=== PATIENT | male | born 1940 | race Caucasian/White ===

== ENCOUNTER → 2020-05-07 08:30 | Outpatient (CLI) | payer MEDICARE, SELFPAY ==
[2019-09-20 13:02] VITALS: BMI 26.2
[2020-05-07 10:15] LABS: Anion Gap 5 (5-15); BUN 20 mg/dL (7-18); BUN/Creat Ratio 21.1 RATIO (10-20); Calcium,Total 9.1 mg/dL (8.5-10.1); Chloride 107 mmol/L (98-107); Cholesterol 183 mg/dL (200); Creatinine, Serum 0.95 mg/dL (0.70-1.30); EST Glomerular Filtration Rate 82 mL/min (>60); Est Glom Filt Rate - Afr Amer 99 mL/min (>60); Glucose 84 mg/dL (74-106); High Density Lipoprotein 42 mg/dL; Potassium 4.3 mmol/L (3.5-5.1); Sodium Level 140 mmol/L (136-145); Triglycerides 134 mg/dL; Very Low Density Lipoprotein 27 mg/dL (5-40)
== END ==
PROVIDERS: PCP Family Medicine; Referring Provider Family Medicine; Visit Provider Family Medicine
DX: I10 Essential (primary) hypertension (principal)
CPT/HCPCS: 36415; 80048; 80061

== ENCOUNTER 2020-12-04 12:42 | Outpatient (RCR) | payer MEDICARE, SELFPAY ==
[2020-08-07 13:00] VITALS: BMI 28.5
== END 2020-12-04 23:59 ==
LOC: IMMUN 12:42
PROVIDERS: PCP Family Medicine; Visit Provider Family Medicine
DX: Z23 Encounter for immunization (principal)
CPT/HCPCS: 0011A; 0012A; 91301

== ENCOUNTER 2021-04-03 16:52 | Emergency (ER) | payer MEDICARE, SELFPAY ==
[2020-08-07 13:00] VITALS: BMI 28.5
[2021-04-03 16:54] VITALS: BP 205/72; PULSE 46; RESP 12; TEMP 36.8; O2SAT 98; BMI 27.7
[2021-04-03 17:00] VITALS: BP 164/89; PULSE 74; RESP 15; O2SAT 98
[2021-04-03 17:06] VITALS: O2SAT 98
--- NOTE | 2021-04-03 17:12 | ED.RN ---
PER DR. ALVAREZ NO STROKE TEAM.
--- NOTE | 2021-04-03 17:13 | CT_ITS ---
STUDY: CT BRAIN WITHOUT CONTRAST REASON FOR EXAM: Male, 81 years old. syncope RADIATION DOSAGE (If Supplied By Facility): CTDIvol = ( 44.99 ) mGy, DLP = ( 846.73 ) mGycm TECHNIQUE: Transaxial CT imaging of the brain was performed without administration of intravenous contrast material. Individualized dose optimization techniques were used for this CT. COMPARISON: No relevant priors. FINDINGS: Normal soft tissue structures. Normal calvarium. There is mild cerebral atrophy with widening of the extra-axial spaces and ventricular dilatation. Normal white matter tracts of the cerebral hemispheres. Normal basal ganglia and thalami. Normal brainstem. Normal cerebellum. There is no intracranial hemorrhage. 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 Normal visualized paranasal sinuses. CT/Brain/Head without Contrast IMPRESSION: Chronic involutional changes of the brain. Electronically Signed: Angel Villa MD at 17:36 EDT Tel , Service support ,
--- NOTE | 2021-04-03 17:14 | EKG12_ITS ---
Test Reason : PALPS Blood Pressure : / mmHG Vent. Rate : 049 BPM Atrial Rate : 049 BPM P-R Int : 220 ms QRS Dur : 168 ms QT Int : 492 ms P-R-T Axes : 014 -82 006 degrees QTc Int : 444 ms Sinus bradycardia with 1st degree A-V block with occasional Premature ventricular complexes Right bundle branch block Left anterior fascicular block Bifascicular block Abnormal ECG Confirmed by JERALD LARA, GERARDO ([id number]), senior technical editor YOLY MANJARREZ ([id number]) on 04/04/2021 1:04:34 PM Referred By: KIM Confirmed By:GERARDO MARQUES MD
--- NOTE | 2021-04-03 17:15 | EDS_ITS ---
HPI History of Present Illness Chief Complaint: Fall Onset/Context/Timing Onset: Today Context: Sudden Onset Timing: Continuous Quality: Blurry Location: Right eye Worsened by: Nothing Relieved by: Nothing Narrative Narrative: Patient presents with a near syncopal episode that occurred today. P atient states he was mowing and he went to turn around. Patient states he felt weak and lightheaded at the time. Patient admits to some blurred vision out of his right eye. Patient states he initially lost vision in his right eye for a few seconds and then it became blurry. Patient still complains of some blurred vision in his right eye. Patient states he also sees some floaters in his right eye. Patient denies any chest pain or palpitations. Patient does admit to a mild headache. Patient denies any shortness of breath. Patient denies any nausea or vomiting. [facility] Medical History (Updated 04/03/21 @ 19:[address] Willis Cameron DO) Essential hypertension History of DVT (deep vein thrombosis) History of radiation therapy Hyperlipidemia Iron deficiency anemia Paroxysmal atrial fibrillation Home Medications lisinopril 40 mg tablet 40 mg PO DAILY 09/18/19 [History Last Taken Unknown] pravastatin 40 mg tablet 40 mg PO QHS tab 09/18/19 [History Last Taken Unknown] metoprolol tartrate 25 mg tablet 25 mg PO BID #60 tab 09/20/19 [Rx Last Taken Unknown] apixaban 5 mg tablet 2.5 mg PO BID tab 01/31/20 [History Last Taken Unknown] multivitamin 1 tab PO DAILY 01/31/20 [History Last Taken Unknown] hydrocodone-acetaminophen 1 tab PO Q6H PRN PRN 3 Days #10 tablet 04/03/21 [Rx Last Taken Unknown] Allergy/AdvReac Type Severity Reaction Status Date / Time No Known Allergies Allergy Unverified 04/03/21 16:53 Family History Father , Age 47 Myocardial infarction Mother Heart disease Brother Heart disease Sister Heart disease Surgical History History of arthroplasty of left knee History of open reduction and internal fixation (ORIF) procedure (08/24/19) Social History Smoking Status: Former smoker how long ago did patient quit smokin years ago alcohol intake: current alcohol intake frequency: a few times a month substance use type: does not use caffeine: Yes Type: coffee Number of servings: 3 ROS ROS ED Constitutional Constitutional ED: Denies chills or fever(s) Eyes Eyes: Reports blurry vision right; Denies diplopia ENT ENT ED: Denies rhinorrhea or sore throat Cardiovascular Cardiovascular: Denies chest pain or palpitations Respiratory/Chest Respiratory/Chest: Denies cough or dyspnea Gastrointestinal Gastrointestinal: Denies nausea or vomiting Genitourinary Genitourinary ED: Denies dysuria or hematuria Musculoskeletal Musculoskeletal: Denies back pain or neck pain Integumentary Denies abscess or rash Neurologic Neurologic: Reports headache(s); Denies weakness Allergic/Immunologic Allergic/Immunologic ED: Denies mouth swelling or urticaria EXAM Physical Exam Const Vital Signs: 04/03/21 16:54 04/03/21 17:00 04/03/21 17:06 Temperature 98.2 F Temperature Source Temporal Pulse Rate 46 L 74 Pulse Rate [Lying] Pulse Rate [Sitting] Pulse Rate [Standing] Respiratory Rate 12 15 Respiratory Effort Normal Non-Labored Respiratory Depth Normal Respiratory Pattern Normal Blood Pressure 205/72 H 164/89 H Blood Pressure [Lying] Blood Pressure [Sitting] Blood Pressure [Standing] Blood Pressure Mean 116 114 Blood Pressure Mean [Lying] Blood Pressure Mean [Sitting] Blood Pressure Mean [Standing] Pulse Ox 98 98 98 Oxygen Delivery Method Room Air Room Air Room Air 04/03/21 17:36 04/03/21 18:07 Temperature Temperature Source Pulse Rate 44 L Pulse Rate [Lying] 49 L Pulse Rate [Sitting] 60 Pulse Rate [Standing] 86 Respiratory Rate 16 Respiratory Effort Respiratory Depth Respiratory Pattern Blood Pressure 183/64 H Blood Pressure [Lying] 160/73 H Blood Pressure [Sitting] 198/67 H Blood Pressure [Standing] 178/89 H Blood Pressure Mean 103 Blood Pressure Mean [Lying] 102 Blood Pressure Mean [Sitting] 110 Blood Pressure Mean [Standing] 118 Pulse Ox 96 Oxygen Delivery Method Room Air Positive well nourished and well developed General Appearance ED: well developed HEENT Reports moist mucous membranes Eyes PERRL, EOMs intact bilaterally and fundi normal bilaterally Direct Ophthalmoscopy: normal light reflex Neck supple and no JVD Chest Wall Chest Narrative: There is tenderness over the left lower ribs. There is no edema or ecchymosis. There is no bony crepitance or step-off. Resp normal respiratory effort and clear to auscultation bilaterally Cardio regular rate and regular rhythm GI normal to inspection, nondistended, normoactive bowel sounds and non-tender Palpation: soft Neuro oriented x3, CN's II-XII intact bilaterally and no sensory deficits noted Sensorium / Orientation: alert Motor Exam: strength 5/5 throughout Psych mental status grossly normal MDM MDM MDM Narrative Medical decision making narrative: EKG was obtained. On my interpretation, it showed a sinus bradycardia with a rate of 49. There is a right bundle branch block and left anterior fascicular block. This is unchanged compared to previous EKG. There are nonspecific ST-T wave changes which are also unchanged from previous EKG. CT scan of the brain was obtained. There is no acute intracranial abnormality. This was interpreted by the radiologist and reviewed by myself. X-rays of the left ribs were obtained. There are 3 views. My interpretation, there are fractures of the sixth and seventh ribs. There is no pneumothorax. Radiologist also interpreted the x-ray and agrees. CBC was normal. PT with INR and PTT were normal. Comprehensive metabolic profile was normal. Troponin was normal. Patient was given a dose of [place] here. Visual acuity was 20/40. Patient feels better on reevaluation. Patient was given a prescription for [place]. Patient was instructed to take 10-15 deep breaths every hour while awake to prevent atelectasis and pneumonia. Patient was instructed to follow-up with his primary care physician in 3 to 5 days for further evaluation of his near syncope. Patient and family understood and were agreeable with the plan. All questions were answered. Lab Data Attestation: I reviewed the patient's lab results. Labs: Laboratory Results - last 24 hr 04/03/21 04/03/21 04/03/21 16:55 16:55 16:55 WBC 11.3 H RBC 5.01 Hgb 15.3 Hct 46.5 MCV 92.8 MCH 30.5 MCHC 32.9 RDW Std Deviation 43.8 RDW Coeff of Declan 12.9 Plt Count 286 MPV 8.9 Immature Gran % (Auto) 0.400 Neut % (Auto) 80.5 H Lymph % (Auto) 11.8 L [place] % (Auto) 6.8 Eos % (Auto) 0.1 Baso % (Auto) 0.4 Absolute Neuts (auto) 9.1 H Absolute Lymphs (auto) 1.33 Nucleated RBC % 0 PT 13.7 INR 1.1 APTT 30.2 Sodium 137 Potassium 4.2 Chloride 101 Carbon Dioxide 29.0 Anion Gap 7 BUN 20 H Creatinine 1.15 Estim Creat Clear Calc 59.57 Est GFR (MDRD) Af Amer 79 Est GFR (MDRD) Non-Af 65 BUN/Creatinine Ratio 17.4 Glucose 91 Calcium 9.5 Total Bilirubin 0.60 AST 28 ALT 29 Alkaline Phosphatase 64 Troponin I High Sens 13.4 Total Protein 8.5 H Albumin 4.8 Globulin 3.7 Albumin/Globulin Ratio 1.3 Radiography Diagnostic Testing: Radiology Impression Brain CT 04/03/21 17:13 IMPRESSION: Chronic involutional changes of the brain. Electronically Signed: Agnel Villa MD at 17:36 EDT Tel , Service support , Ribs w/Chest X-Ray 04/03/21 17:50 IMPRESSION: RIBS: Acute fractures of the lateral left sixth and seventh ribs. CHEST: No pneumothorax or hemothorax. Electronically Signed: Angel Villa MD at 18:22 EDT Tel , Service support , EKG Initial EKG: Attestation: I personally reviewed and interpreted this EKG as follows: Interpretation: Sinus Rhythm (49), RBBB, LAFB and Non-Specific ST Changes Prior EKG tracings: available for review Prior: Unchanged (08/26/2019) Discharge Plan Triage Chief Complaint: Fall Other Complaint: Eye Problem ED Provider: Willis Cameron Dx/Rx/DC Orders Clinical Impression: Near syncope, Left rib fracture Instructions: ED Rib Fracture, ED Near-Fainting, Uncertain Cause Prescriptions: New hydrocodone-acetaminophen [hydrocodone-acetaminophen] 1 TABLET tablet 1 tab PO Q6H PRN PRN (Reason: Pain) 3 Days Qty: 10 RF: 0 No Action metoprolol tartrate 25 mg tablet 25 mg PO BID Qty: 60 RF: 11 lisinopril 40 mg tablet 40 mg PO DAILY RF: 0 pravastatin 40 mg tablet 40 mg PO QHS RF: 0 apixaban 5 mg tablet 2.5 mg PO BID RF: 0 multivitamin Tablet 1 tab PO DAILY RF: 0 Primary Care Provider: Juan Lay Referrals: Juan Lay MD [Primary Care Provider] - 3-5 Days Junito Pino MD [STAFF PHYSICIAN] - 3-5 Days Disposition Disposition: Home, Self Care
[2021-04-03 17:32] LABS: Absolute Lymphocyte Count 1.33 X10^3/uL (0.83-4.51); Absolute Neutrophil Count 9.1 X10^3/uL (2.0-7.7); Basophil# 0.05 X10^3/uL; Basophil% 0.4 % (0-1); Eosinophil# 0.01 X10^3/uL; Eosinophils% 0.1 % (0-5); Hematocrit 46.5 % (40-54); Hemoglobin 15.3 g/dL (13.0-16.5); Lymphocyte # 1.33 X10^3/ul (0.83-4.51); Lymphocyte % 11.8 % (19-41); Mean Corp Hgb Conc 32.9 g/dL (32-36); Mean Corpuscular Hgb 30.5 pg (27.0-32.0); Mean Corpuscular Volume 92.8 fL (80-94); Mean Platelet Vol. 8.9 fl (6.2-12.0); Monocyte# 0.77 X10^3/uL; Monocyte% 6.8 % (0-10); NRBC Flagged by Analyzer 0 % (0-5); Neutrophil # 9.09 X10^3/uL (2.7-7.7); Neutrophil % 80.5 % (47-70); Platelet Count 286 K/mm3 (150-450); RBC Distribution Width CV 12.9 % (11.6-14.6); RBC Distribution Width SD 43.8 fl (35.1-43.9); Red Blood Count 5.01 M/mm3 (4.6-6.2); White Blood Count 11.3 K/mm3 (4.4-11.0)
[2021-04-03] MEDS: HYDROcodone Bitartrate/Apap 5/325 Tablet PO (17:33)
[2021-04-03 17:36] VITALS: BP 160/73; BP 178/89; BP 198/67; PULSE 49; PULSE 60; PULSE 86
[2021-04-03 17:37] LABS: International Normalized Ratio 1.1; Prothrombin Time (Protime)PT. 13.7 SECONDS (11.7-14.9)
[2021-04-03 17:39] LABS: Partial Thromboplast Time 30.2 Seconds (24.1-36.2)
[2021-04-03 17:48] LABS: ALB/GLOB Ratio 1.3 RATIO (0.9-2.4); AST(SGOT) 28 U/L (15-37); Alanine Aminotransfer ALT/SGPT 29 U/L (16-61); Albumin, Serum 4.8 g/dL (3.2-5.0); Alkaline Phosphatase 64 U/L (45-117); Anion Gap 7 (5-15); BUN 20 mg/dL (7-18); BUN/Creat Ratio 17.4 RATIO (10-20); Calcium,Total 9.5 mg/dL (8.5-10.1); Chloride 101 mmol/L (98-107); Creatinine, Serum 1.15 mg/dL (0.70-1.30); EST Glomerular Filtration Rate 65 mL/min (>60); Est Glom Filt Rate - Afr Amer 79 mL/min (>60); Estimated Creatinine Clearance 59.57 ml/min; Globulin 3.7 g/dL (2.2-4.2); Glucose 91 mg/dL (74-106); Potassium 4.2 mmol/L (3.5-5.1); Protein, Total 8.5 g/dL (6.4-8.2); Sodium Level 137 mmol/L (136-145); Troponin-I HS 13.4 pg/mL (3.0-78.5)
--- NOTE | 2021-04-03 17:50 | RAD_ITS ---
STUDY: X-RAY - UNILATERAL RIBS ( LEFT ) WITH CHEST REASON FOR EXAM: Male, 81 years old. Injury TECHNIQUE - RIBS: 4 view(s) of the ribs. TECHNIQUE - CHEST: Single PA view of the chest. COMPARISON: None. FINDINGS - RIBS: Acute fractures of the lateral left sixth and seventh ribs. FINDINGS - CHEST: Poor inspiration with some bibasilar atelectasis. There is no demonstrated pleural abnormality. Normal size heart. Normal mediastinum and megha. Normal visualized pulmonary arteries. Normal visualized aortic arch and descending thoracic aorta. Normal visualized thoracic spine. Normal visualized ribs, clavicles, and shoulders. There is no demonstrated abnormality of the visualized soft tissue structures of the upper abdomen. RAD/Ribs Uni Min 3V w/PA Chest IMPRESSION: RIBS: Acute fractures of the lateral left sixth and seventh ribs. CHEST: No pneumothorax or hemothorax. Electronically Signed: Angel Villa MD at 18:22 EDT Tel , Service support ,
[2021-04-03 18:07] VITALS: BP 183/64; PULSE 44; RESP 16; O2SAT 96
[2021-04-03 19:54] VITALS: BP 146/90; PULSE 46; RESP 16; O2SAT 97
--- NOTE | 2021-04-03 19:56 | ED.RN ---
incentive spirometer given and explained at dc
== END 2021-04-03 19:55 | disposition home or self-care (01) ==
PROVIDERS: Emergency Provider Emergency Medicine; PCP Family Medicine
DX: S22.32XA Fracture of one rib, left side, initial encounter for closed fracture (principal); R55 Syncope and collapse; W01.0XXA Fall on same level from slipping, tripping and stumbling without subsequent striking against object, initial encounter; Y93.H9 Activity, other involving exterior property and land maintenance, building and construction; Y92.096 Garden or yard of other non-institutional residence as the place of occurrence of the external cause; I10 Essential (primary) hypertension; D50.9 Iron deficiency anemia, unspecified; I48.0 Paroxysmal atrial fibrillation; E78.5 Hyperlipidemia, unspecified; I45.10 Unspecified right bundle-branch block; Z79.01 Long term (current) use of anticoagulants; Z86.718 Personal history of other venous thrombosis and embolism; Z87.891 Personal history of nicotine dependence; Z92.3 Personal history of irradiation
CPT/HCPCS: 70450; 71101; 80053; 84484; 85025; 85610; 85730; 93005; 99285; A4216

== ENCOUNTER → 2021-04-16 12:29 | Outpatient (CLI) | payer MEDICARE, SELFPAY ==
[2021-04-03 16:54] VITALS: BMI 27.7
--- NOTE | 2021-04-16 12:31 | CDU_ITS ---
Reason For Study: Amaurosis Fugax Rt. Velocities/BP Lt. Velocities/BP Prox CCA 46/0 cm/sec. Prox CCA 94/17 cm/sec. Mid CCA 42/0 cm/sec. Mid CCA 99/23 cm/sec. Dist CCA 37/2 cm/sec. Dist CCA 88/24 cm/sec. Prox ICA 50/0 cm/sec. Prox ICA 113/27 cm/sec. Mid ICA 224/26 cm/sec. Mid ICA 127/19 cm/sec. Dist ICA 98/8 cm/sec. Dist ICA 116/29 cm/sec. Rt. ICA/CCA = 5.33. Lt. ICA/CCA = 1.3. Prox ECA 136/8 cm/sec. Prox ECA 98/0 cm/sec. Rt. Vert. 47/14 cm/sec. Lt. Vert. 38/0 cm/sec. Right Extracranial There is heterogeneous, irregular atherosclerotic plaque noted in the right common carotid artery. There is heterogeneous, irregular atherosclerotic plaque noted in the right internal carotid artery. Rt ICA mid/distal demonstrates string color flow, no retrograde flow noted. There is heterogeneous, irregular atherosclerotic plaque noted in the right external carotid artery. Antegrade flow is noted in the right vertebral artery. Left Extracranial There is heterogeneous, irregular atherosclerotic plaque noted in the left common carotid artery. There is heterogeneous, irregular atherosclerotic plaque noted in the left internal carotid artery. There is intimal thickening but no significant atherosclerotic plaque noted in the left external carotid artery. Antegrade flow is noted in the left vertebral artery. Procedure Carotid Duplex 60307. This is a Carotid Duplex examination using B-mode, color flow and specral Doppler. Prelim given to Donna at Dr. Rangel's office and Sheron at Dr. Lay's office. Exam performed in department. VL/Carotid Duplex Ultrasound Interpretation Summary Irregular calcific plaque of the distal right common carotid and proximal right internal and external carotid arteries. 50 to 69% stenosis right mid internal carotid artery (possibly closer to upper limits of range) Less than 50% stenosis right external carotid artery Irregular calcific plaque with shadowing at the proximal left internal carotid artery with 50 to 69% stenosis of the left internal carotid artery Less than 50% stenosis left external carotid artery Patent and antegrade vertebral arteries bilaterally Ordering Physician: Drew Rangel Referring Physician: Juan Lay Performed By: Lynda Pimentel RDCS, RVT
--- NOTE | 2021-04-16 12:32 | ECHOD_ITS ---
Reason For Study: AMAUROSIS FUJAX/ TIA Procedure This was a 2D Doppler, Color Flow transthoracic echocardiogram. The study was technically difficult. Exam performed in department. Left Ventricle Normal LV size. Left ventricular systolic function is normal. The estimated ejection fraction is 65 %. Stage 2 diastolic dysfunction. No regional wall motion abnormalities noted. Right Ventricle Normal RV size. Normal systolic function. Atria Normal left atrium. Normal right atrium. Bubble contrast study negative for right to left interatrial shunt. Mitral Valve Normal mitral valve. Mild (1+) mitral valve insufficiency. Tricuspid Valve Normal tricuspid valve. Mild (1+) tricuspid valve insufficiency. Pulmonary artery systolic pressure is 28 mmHg. Aortic Valve Trisinus/trileaflet aortic valve. Moderate focal aortic valve calcification. Peak aortic valve gradient 36 mmHg. Mean aortic valve gradient 20 mmHg. Mild to moderate aortic stenosis. Mild- Moderate (1-2+) aortic valve insufficiency. Pulmonic Valve Normal pulmonic valve. Great Vessels Mildly dilated aortic root. The pulmonary artery is normal size. Normal inferior vena cava. Pericardium/Pleural No pericardial effusion. Medication 22 gauge I.V. with prn adaptor inserted into right arm. Performed a rapid injection of agitated mix of 9 cc saline and 1cc air to assess for atrial septal defect. MMode/2D Measurements & Calculations LVIDd: 5.0 cm IVSd: 1.0 cm LVOT diam: 2.2 cm LVIDs: 3.4 cm LVPWd: 0.97 cm RVDd: 3.6 cm FS: 30.6 % LVOT area: 3.7 cm2 Ao root diam: 4.1 cm LAV(MOD-bp): 71.4 ml LA A4 area: 24.6 cm2 LAV(MOD-bp) Indexed: 31.4 ml/m2 LAV(MOD-sp2): 71.0 ml LAV(MOD-sp4): 69.6 ml LA dimension(2D): 4.7 cm RA A4 area: 16.5 cm2 Time Measurements MV dec time: 0.18 sec Doppler Measurements & Calculations MV E max danilo: 103.9 cm/sec Lat Peak E' Daniol: 9.4 cm/sec Med Peak E' Danilo: 5.6 cm/sec MV A max danilo: 87.3 cm/sec E/E' lat: 11.1 E/E' med: 18.7 MV E/A: 1.2 Ao V2 max: 298.4 cm/sec AI max danilo: 391.9 cm/sec LV V1 max: 122.8 cm/sec Ao max P.6 mmHg AI max P.4 mmHg LV V1 max P.0 mmHg Ao V2 mean: 209.6 cm/sec AI dec slope: 105.0 cm/sec2 LV V1 mean P.2 mmHg Ao mean P.4 mmHg AI P1/2t: 1093 msec LV V1 mean: 84.5 cm/sec Ao V2 VTI: 79.7 cm LV V1 VTI: 33.5 cm RAEGAN(I,D): 1.6 cm2 RAEGAN(V,D): 1.5 cm2 SV(LVOT): 125.2 ml TR max danilo: 242.2 cm/sec TR max P.5 mmHg ECHO/Echo Complete Interpretation Summary Normal LV size. Left ventricular systolic function is normal. The estimated ejection fraction is 65 %. Moderate focal aortic valve calcification. Mild-Moderate (1-2+) aortic valve insufficiency. Stage 2 diastolic dysfunction. Mean aortic valve gradient 20 mmHg. Mild to moderate aortic stenosis. Ordering Physician: Drew Rangel Referring Physician: BLU MUNGUIA Performed By: Mandy Yarbrough, RDCS, RVT
== END ==
PROVIDERS: PCP Family Medicine; Referring Provider Ophthalmology; Visit Provider Ophthalmology
DX: G45.3 Amaurosis fugax (principal)
CPT/HCPCS: 93306; 93880; A4216

== ENCOUNTER → 2021-07-01 08:33 | Outpatient (CLI) | payer MEDICARE, SELFPAY ==
--- NOTE | 2021-07-01 08:36 | NM_ITS ---
CLINICAL: Male, 81 years old. PROSTATE CA RADIATION THERAPY YEARS AGO -- NOW RISING PSA -- FRACTURED LEFT RIBS IN MARCH -- FRACTURED LEFT HIP A FEW YEARS AGO WHOLE BODY NUCLEAR BONE SCAN TECHNIQUE: Following the IV administration of 26 mCi of Tc MDP, whole body bone imaging was performed with a gamma camera following a three hour delay. COMPARISON STUDIES : NM - None. CR - Not available for review at this time. CT - Not available for review at this time. MR - Not available for review at this time. US - Not available for review at this time. FINDINGS: There is increased uptake within the lateral aspect of multiple ribs on the left consistent with rib fractures. There is linear increased uptake within the upper lumbar spine suggestive of a compression fracture. No other foci of increased uptake are identified to suggest metastatic disease. Normal concentration reviewed from school by the kidneys with excretion into the bladder. NM/Bone Scan Whole Body IMPRESSION: 1. No scintigraphic evidence of metastatic disease. 2. Suspect compression fracture of the upper lumbar spine in correlation with CT or MRI would be useful. 3. Multiple known left rib fractures. Electronically Signed: Angel Villa MD at 12:23 EDT Tel , Service support ,
== END ==
PROVIDERS: PCP Family Medicine; Referring Provider Radiology Radiation Oncology; Visit Provider Radiology Radiation Oncology
DX: C61 Malignant neoplasm of prostate (principal); R97.20 Elevated prostate specific antigen [PSA]
CPT/HCPCS: 78306; A9503

== ENCOUNTER → 2021-09-08 12:53 | Outpatient (CLI) | payer MEDICARE, SELFPAY | PROVIDERS: PCP Family Medicine; Referring Provider Physician Assistant Medical; Visit Provider Physician Assistant Medical | DX: R55 Syncope and collapse (principal); I48.0 Paroxysmal atrial fibrillation | CPT/HCPCS: 93225; 93226 ==

== ENCOUNTER → 2021-09-18 06:27 | Outpatient (CLI) | payer MEDICARE, SELFPAY ==
--- NOTE | 2021-09-18 09:03 | STRESSREP_ITS ---
Stress Test Report Date: 09-18-2021 Procedure: Pharmacologic stress nuclear imaging study Indications: Near syncope; bradycardia/tachycardia; PVCs; atrial fibrillation; abnormal ECG Consent: Per the patient Procedure: The patient underwent pharmacologic (Regadenoson 0.4mg ) evaluation with a peak heart rate of 63 beats per minute (45%predicted maximal heart rate) and a peak blood pressure of 112/68 mmHg. The baseline ECG demonstrated sinus bradycardia; right IVCD. The peak pharmacologic ECG demonstrated no obvious ECG changes. There were occasional PVCs during recovery. There was no complaint of chest discomfort during pharmacologic infusion or recovery. The examination was discontinued secondary to completion of protocol. Impression: 1. Pharmacologic (Regadenoson) evaluation 2. Peak pharmacologic ECG with no obvious ECG changes. 3. There were occasional PVCs during recovery. 4. Nuclear images pending Myocardial perfusion imaging study: Technique: The patient was injected with 14.2 millicuries of technetium 99m Cardiolite and subsequently rest SPECT Cardiolite nuclear imaging was obtained in the horizontal long, vertical long, and short axis views. The patient underwent pharmacologic (Regadenoson) evaluation with a peak heart rate of 63 beats per minute (45% percent predicted maximal heart rate) and a peak blood pressure of 112/68 mmHg. The patient was injected with 43.9 millicuries of technetium 99m Cardiolite and subsequently stress SPECT Cardiolite nuclear imaging was obtained in the horizontal long, vertical long, and short axis views. A gated Cardiolite study at peak stress was not obtained. Interpretation: Rest and stress SPECT Cardiolite nuclear imaging status post realignment, normalization, and attenuation correction demonstrate an area of diminished myocardial perfusion/tracer uptake in the mid lateral segments without significant change between rest and stress. Impression: 1. Rest and stress SPECT her nuclear imaging demonstrate myocardial perfusion changes potentially compatible with an area of previous myocardial injury/infarction in the mid lateral segments without myocardial perfusion changes considered diagnostic for associated stress-induced myocardial ischemia. 2. A gated Cardiolite study was not obtained. This note was generated with [employer] software. It may contain incorrect words, spelling, and punctuation that were not noted in checking the note before signing.
== END ==
PROVIDERS: PCP Family Medicine; Referring Provider Physician Assistant Medical; Visit Provider Physician Assistant Medical
DX: R55 Syncope and collapse (principal); R94.31 Abnormal electrocardiogram [ECG] [EKG]
CPT/HCPCS: 78452; 93017; A9500; A4216; J2785

== ENCOUNTER 2021-11-18 08:58 | Day surgery (SDC) | payer MEDICARE, SELFPAY ==
--- NOTE | 2021-10-29 07:15 | RAD_ITS ---
History: Preop EXAMINATION/TECHNIQUE: XR Chest 2 Views: COMPARISON: April 03, 2021 FINDINGS: LINES/DEVICES: None. LUNGS: No consolidation, edema or effusion. No pneumothorax. MEDIASTINUM AND CARDIOVASCULAR STRUCTURES: Cardiac silhouette not enlarged. Ectatic tortuous aorta again seen. BONES AND SOFT TISSUES: Unremarkable. RAD/Chest PA and Lateral IMPRESSION: No radiographic evidence of acute cardiopulmonary disease. No change. at 1651 Reported and signed by: Telly Cohen MD Electronically Signed: Telly Cohen MD at 16:50 EST Tel , Service support ,
[2021-10-29 08:13] LABS: Absolute Lymphocyte Count 1.61 X10^3/uL (0.83-4.51); Absolute Neutrophil Count 3.4 X10^3/uL (2.0-7.7); Basophil# 0.06 X10^3/uL; Eosinophil# 0.27 X10^3/uL; Eosinophils% 4.6 % (0-5); Hematocrit 40.5 % (40-54); Hemoglobin 13.5 g/dL (13.0-16.5); Lymphocyte # 1.61 X10^3/ul (0.83-4.51); Lymphocyte % 27.2 % (19-41); Mean Corp Hgb Conc 33.3 g/dL (32-36); Mean Corpuscular Volume 92.9 fL (80-94); Mean Platelet Vol. 9.2 fl (6.2-12.0); Monocyte# 0.57 X10^3/uL; Monocyte% 9.6 % (0-10); NRBC Flagged by Analyzer 0 % (0-5); Neutrophil # 3.38 X10^3/uL (2.7-7.7); Neutrophil % 57.3 % (47-70); Platelet Count 260 K/mm3 (150-450); RBC Distribution Width CV 12.8 % (11.6-14.6); RBC Distribution Width SD 43.5 fl (35.1-43.9); Red Blood Count 4.36 M/mm3 (4.6-6.2); White Blood Count 5.9 K/mm3 (4.4-11.0)
[2021-10-29 08:37] LABS: Anion Gap 5 (5-15); BUN 19 mg/dL (7-18); BUN/Creat Ratio 22.3 RATIO (10-20); Calcium,Total 9.5 mg/dL (8.5-10.1); Chloride 102 mmol/L (98-107); Creatinine, Serum 0.85 mg/dL (0.70-1.30); EST Glomerular Filtration Rate 92 mL/min (>60); Est Glom Filt Rate - Afr Amer 111 mL/min (>60); Glucose 83 mg/dL (74-106); Potassium 4.4 mmol/L (3.5-5.1); Sodium Level 138 mmol/L (136-145)
[2021-10-29 08:40] LABS: International Normalized Ratio 1.1; Prothrombin Time (Protime)PT. 13.8 SECONDS (11.7-14.9)
[2021-10-29 08:42] LABS: Partial Thromboplast Time 34.6 Seconds (24.1-36.2)
[2021-11-17 08:09] VITALS: BMI 28.0
--- NOTE | 2021-11-17 17:54 | HP.PCM_ITS ---
History and Physical Date of Admission: 11/18/21 [facility] [id number] [place], [place] [phone] OFFICE VISITDate of Service: 10/13/21 MR#:[id number]: FELISHA GARRIDO CRep #:[id number]:[id number] Provider: CHRISTI Paul/Sex: 81/M [facility] HPI HPI History of Present Illness Surgical H&P: Yes Details: This is a 79-year-old gentleman that presents here today for an abnormal stress test to further discuss pursuing a heart catheterization. He does have a history of paroxysmal atrial fibrillation, right bundle branch block. Patient was in to see us in August and had noted that his metoprolol was stopp ed after he passed out. He did lose vision in his right eye but this is since improved. We did pursue a Holter monitor for syncopal event. Sinus rhythm with evidence of sinus bradycardia with an underlying bundle branch block pattern with ventricular rates as low as approximately 30 bpm at 4 AM and evidence of a maximal heart rate of 97 bpm with a bundle branch block pattern; occasional PACs/repetitive PACs and ectopic atrial rhythm/tachycardia with the longest being 3 beats in duration; frequent PVCs with evidence of ventricular couplets/triplets/bigeminy/trigeminy as well as 3 wide-complex runs with the longest run being approximately 8 beats in duration; no prolonged pauses; no symptoms reported. With his frequent PVCs it was recommended he undergo a stress test. Based on findings will be reasonable to refer to EP for concerns over tachycardia bradycardia with underlying ventricular ectopy. Stress nuclear imaging study: Findings potentially compatible with an area of previous myocardial injury/infarction in the mid lateral segments with no findings considered diagnostic for associated stress-induced myocardial ischemia. Based upon the patient's report of syncope and the aforementioned Holter monitor findings, despite the lack of obvious evidence of stress-induced myocardial ischemia on his myocardial perfusion study, would consider medical therapy with beta-blockers as long as heart rate and blood pressure allow and would consider definitive evaluation for any obvious CAD with diagnostic cardiac catheterization if the patient cannot interrupt his anticoagulant therapy in the future. 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: No Is patient in pain?: No Allergies No Known Allergies Allergy (Verified 10/13/21 09:20) Medications lisinopril 40 mg tablet 40 mg PO DAILY 09/18/19 [History Confirmed 10/13/21] pravastatin 40 mg tablet 40 mg PO QHS tab 09/18/19 [History Confirmed 10/13/21] apixaban 5 mg tablet 2.5 mg PO BID tab 01/31/20 [History Confirmed 10/13/21] multivitamin 1 tab PO DAILY 01/31/20 [History Confirmed 10/13/21] [facility] Medical History (Updated 10/13/21 @ 16:21 by Piedad BARRAZA, PA) Carotid stenosis Essential hypertension Frequent PVCs History of DVT (deep vein thrombosis) History of radiation therapy Hyperlipidemia Iron deficiency anemia Osteoarthritis Paroxysmal atrial fibrillation Tachycardia-bradycardia Surgical History History of arthroplasty of left knee History of open reduction and internal fixation (ORIF) procedure (08/24/19) Family History Father , Age 47 Myocardial infarction Heart disease Mother Heart disease Diabetes CVA (cerebral vascular accident) Brother Heart disease Diabetes Hypertension Sister Heart disease Social History Smoking Status: Former smoker how long ago did patient quit smokin years ago alcohol intake: current alcohol intake frequency: a few times a month substance use type: does not use caffeine: Yes Type: coffee Number of servings: 3 ROS Const Const: Negative for fatigue, weakness, headache(s), frequent falls, excessive sweating, weight gain or weight loss Eyes Eyes: Negative for blind spots, loss of peripheral vision, transient loss of vision, blurry vision, change in vision or double vision ENT ENT: Negative for headache(s), dizziness, tinnitus, Nosebleed/epistaxis or balance problems Cardio Chest Pain: No Palpitations: No Edema: None Muscle aches with walking: None Resp Respiratory: Negative for SOB with activity, SOB at rest, SOB orthopnea\SOB lying down or Cough GI GI: Negative nausea, vomiting, heartburn, bloating, vomiting blood/hematemesis, bright, red blood in stools or black,tarry stools : Negative for hematuria Musc Musc: Negative for muscle aches/ myalgia, muscle weakness, joint pain or balance problems Skin Skin: Negative rash or wounds Neuro Neuro: Negative for dizziness, lightheadedness, near syncope, syncope, orthostatic symptoms, frequent falls, headache(s), weakness, confusion, memory loss, restless legs, blurry vision or double vision Robert Hematologic/Lymphatic: Negative for easy bleeding or easy bruising Endo Endo: Negative for fatigue, cold intolerance, heat intolerance or excessive sweating Psych Psych: Negative for anxiety or depression Allergy Allergy/Immunology: Negative for rash Cardiology Exam Const Appearance: cooperative, healthy appearing, comfortable, no acute distress and well developed Orientation: alert, awake and oriented x3 Head Head: normal to inspection Ears: hearing grossly normal bilaterally Nose: external nose normal Face and Sinus: face symmetric Mouth: oral mucosae normal, lip normal and moist mucous membranes Eyes General: appearance normal, both eyes and all related structures Eyelids: eyelids normal Conjunctivae: conjunctivae normal Pupils: PERRL EOM: EOM intact bilaterally Neck Neck: normal visual inspection and trachea midline; Negative no JVD Carotids: Negative bruit Chest Chest inspection: normal inspection of the chest Auscultation: Bilateral: Clear to Auscultation Cardio Palpation: normal PMI Rate: regular rate Rhythm: regular rhythm Heart sounds: S1 normal, S2 normal and murmur; Negative rub or gallop Murmur: Grade 2/6, soft and mid systolic GI GI: soft, no hepatosplenomegaly and bowel sounds present Neuro General: patient alert, patient awake, patient oriented x3 and CN's II-XI intact bilaterally Extremities Pulses: Normal: Right Posterior Tibial Pulse, Left Posterior Tibial Pulse, Right Radial Pulse and Left Radial Pulse Lower Extremity Edema: None: Bilateral Psych Psychological: normal affect Supplemental Info Supplemental Information Echocardiogram 2020: Normal LV size. Left ventricular systolic function is normal. The estimated ejection fraction is 65 %. Moderate focal aortic valve calcification. Mild-Moderate (1-2+) aortic valve insufficiency. Stage 2 diastolic dysfunction. Mean aortic valve gradient 20 mmHg. Mild to moderate aortic stenosis. Labs: No Data to Display Diagnostics: Electrocardiogram Echocardiogram Stress Test NM Stress Test Pulmonary: No Data to Display Assessment and Plan Assessment and Plan (1) Near syncope: Status: Acute (2) Amaurosis fugax of right eye: Status: Acute (3) NSVT (nonsustained ventricular tachycardia): Status: Acute (4) Frequent PVCs: Status: Acute (5) Tachycardia-bradycardia: Status: Acute Orders: Orders: Left Heart Cath/COR/LV Percut Today R55, G45.3, I47.2 Basic Metabolic Profile (BMP) Today R55, G45.3, I47.2 Partial Thromboplast Time Today R55, G45.3, I47.2 Prothrombin Time w/INR Today R55, G45.3, I47.2 CBC W/Diff, Automated Today R55, G45.3, I47.2 Chest PA and Lateral Today R55, G45.3, I47.2 Plan - Piedad BARRAZA, PA: With patient's nonsustained ventricular tachycardia and syncopal event would like to pursue a diagnostic heart catheterization despite a normal stress test to assure that it is not a balanced ischemia on his stress test. 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 Patient is agreeable to proceed with this. Plan Details Other Orders: Orders: 12 Lead EKG performed by BMS Today I48.0 Left Heart Cath/COR/LV Percut Today I35.1 Partial Thromboplast Time Today I48.0 Prothrombin Time w/INR Today Z86.718 CBC W/Diff, Automated Today E78.5 Follow Up: 10/13/21 (keep as is) COVID (Procedure Consent) Procedure Criteria Procedure Criteria: Yes Elective The surgeon/proceduralist and patient have discussed in detail the risk of exposure to and/or potential harm posed by the COVID-19 virus with having a surgery/procedure at this time versus the risk of delaying the surgery/procedure. It is not possible to know either the risk of delaying the surgery or procedure or chance of getting an infection with perfect accuracy, but a joint decision was made between the patient and the surgeon/proceduralist to proceed at this time with the scheduled surgery/procedure as indicated on the consent form. Coding Level of Care Code Off vis,est,level 4 Diagnoses Near syncope R55 Amaurosis fugax of right eye G45.3 NSVT (nonsustained ventricular tachycardia) I47.2 Frequent PVCs I49.3 Tachycardia-bradycardia I49.5 Coding Level of Care Code Off vis,est,level 4 Diagnoses Near syncope R55 Amaurosis fugax of right eye G45.3 NSVT (nonsustained ventricular tachycardia) I47.2 Frequent PVCs I49.3 Tachycardia-bradycardia I49.5 10/13/21 1622<Electronically signed by Piedad BARRAZA>Date Piedad BARRAZA Cosigner Signature:Date (if applicable) CC: Dr. Juan Lay MD ~ Assessment & Plan Addt'l Comments I have re-examined the patient. There are no clinical changes since date of exam
--- NOTE | 2021-11-18 12:19 | CL.D_ITS ---
Patient Name: FELISHA GARRIDO Study Date: 11/18/2021 Performing: Juan Escudero MD Ht: 74.01 inches 188 cm : 1940 Wt: 218.26 lbs 99 kg Age: 81 Gender: male BSA: 2.26 PROCEDURE(S) PERFORMED DC01-(81719)LHC/COR/LV CLINICAL PROFILE AND INDICATIONS Indications: Cardiac Arrythmia, Syncope Heart Failure: None Stress/Imaging Date: 09/18/2021tress Test with SPECT MPI: Positive Intermediate Risk Angina Classification Anginal Classification w/in 2 Weeks: No symptoms CAD Presentations: Other: syncope CONCLUSIONS Elevated Left Ventricular End Diastolic Pressure (mild) Normal LV size, wall motion,and systolic function LVEF: by LV gram 55 % [place] 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 Bee of Interventional Cardiology DESCRIPTION OF PROCEDURE The patient arrived to the procedure lab. The risks and benefits of the procedure as well as a full d escription of our services here and current unavailability of surgical backup were fully explained to the patient and/or their significant other prior to the catheterization. The Timeout was completed, verifying the correct patient and procedure. The patient's procedural site was prepped and draped in the usual fashion. Local anesthetic was given subcutaneously to right radial region with Lidocaine 2% . Using a modified Seldinger technique, arterial access was obtained via the right radial artery, a 6 Fr sheath was inserted. Left Coronary Artery selective angiography was performed in multiple views u sing a 5 Fr. JL3.5 catheter. Right Coronary Artery selective angiography was then performed in multip le views using a 6 Fr. JR 4 catheter. Left Ventriculography was performed in DIAZ projection using a 6 Fr. 125cm Pigtail catheter. LV to AO pullback pressures were then recorded.The arterial sheath was pulled and a TR Band was applied for hemostasis w/10ml air CORONARY ANGIOGRAPHY DOMINANCE: Right Dominant LEFT HEART ASSESSMENT Left Ventricular Ejection Fraction: by LV Gram 55 % Normal LV wall motion Elevated Left Ventricular End Diastolic Pressure LVEDP: 13 mmHg LEFT MAIN: Angiographically normal LEFT ANTERIOR DESCENDING ARTERY: Mild luminal irregularities PROX LAD: Mild calcification DIAGONAL 1: Proximal - Mild luminal irregularities DIAGONAL 2: Proximal - Mild luminal irregularities CIRCUMFLEX ARTERY: Mild luminal irregularities OM 1: Mid - is occluded and fills from right to left collateral flow RAMUS: Angiographically normal RIGHT CORONARY ARTERY: Mild luminal irregularities DISTAL RCA: somewhat ectatic appearing, 50 % Stenosis COLLATERAL FLOW: Collateral flow from Right to Left VALVE FINDINGS: Aortic Valve Calcification - moderate AORTIC ROOT: Angiographically normal COMPLICATIONS No Complications PROCEDURE MEDICATIONS Versed 1 mg IV Fentanyl 50 mcg IV Oxygen: 2 L/min via nasal cannula Aspirin (325mg) 1 Tabs PO @ 11/18/2021 09:31:07 Heparin given IA 11/18/2021 10:40:20 SUMMARY OF HEMODYNAMIC DATA Time AIR REST ECG 09:28:42 Art 139/51 (80) 10:37:31 AO 105/49 (71) SA 10:42:47 LV 141/-1, 14 11:06:21 LV 151/0, 13 11:06:27 LV 164/0, 13 11:07:20 LV 153/0, 16 11:07:27 LVp 148/-6, 6 11:07:41 AOp 157/32 (74) 11:07:46 Signed By Juan Escudero MD On 11/18/2021 12:18:38 Juan Escudero MD
== END 2021-11-18 23:59 | disposition home or self-care (01) ==
LOC: CLSP 09:01
PROVIDERS: Physician Assistant Medical; PCP Family Medicine; Referring Provider Internal Medicine Cardiovascular Disease; Visit Provider Internal Medicine Cardiovascular Disease
DX: I47.2 Ventricular tachycardia (principal); I70.0 Atherosclerosis of aorta; I49.5 Sick sinus syndrome; I45.4 Nonspecific intraventricular block; R00.8 Other abnormalities of heart beat; Z87.891 Personal history of nicotine dependence; I49.3 Ventricular premature depolarization; I10 Essential (primary) hypertension; E78.5 Hyperlipidemia, unspecified
CPT/HCPCS: 36415; 71046; 80048; 85025; 85610; 85730; 93458; 99152; 99153; J7040; C1769; C1894; Q9967

== ENCOUNTER → 2022-06-22 | Outpatient (CLI) | payer MEDICARE, SELFPAY ==
--- NOTE | 2022-06-22 12:47 | CDU_ITS ---
Reason For Study: Carotid stenosis Rt. Velocities/BP Lt. Velocities/BP Prox CCA 55.1 cm/sec. Prox CCA 100.3/20.1 cm/sec. Mid CCA 41.3 cm/sec. Mid CCA 92.7/19 cm/sec. Dist CCA 49.1/4.6 cm/sec. Dist CCA 71.8/14.6 cm/sec. Prox ICA 147.7/5 cm/sec. Prox ICA 74/16.8 cm/sec. Mid ICA 53 cm/sec. Mid ICA 126.6/29.8 cm/sec. Dist ICA 39/4.1 cm/sec. Dist ICA 82.7/22.5 cm/sec. Rt. ICA/CCA = 3.01. Lt. ICA/CCA = 1.37. Prox ECA 121.1/4.2 cm/sec. Prox ECA 59.7/6.9 cm/sec. Rt. Vert. 40/14.5 cm/sec. Lt. Vert. 41.9/9.7 cm/sec. Right Extracranial There is heterogeneous, irregular atherosclerotic plaque noted in the right common carotid artery. There is heterogeneous, irregular atherosclerotic plaque noted in the right internal carotid artery. Right ICA mid demonstrates bidirectional flow in color and doppler. There is heterogeneous, irregular atherosclerotic plaque noted in the right external carotid artery. Antegrade flow is noted in the right vertebral artery. Left Extracranial There is heterogeneous, irregular atherosclerotic plaque noted in the left common carotid artery. There is heterogeneous, irregular atherosclerotic plaque noted in the left internal carotid artery. There is intimal thickening but no significant atherosclerotic plaque noted in the left external carotid artery. Antegrade flow is noted in the left vertebral artery. Procedure Carotid Duplex [id number]. This is a Carotid Duplex examination using B-mode, color flow and specral Doppler. Preliminary report given to Makeda. Exam performed in department. VL/Carotid Duplex Ultrasound Interpretation Summary Extensive irregular plaque involving the right carotid bulb and proximal internal audit senior manager al carotid artery with 50 to 69% stenosis based upon velocity. Less than 50% stenosis right external carotid artery Irregular calcific plaque with shadowing at the proximal left internal carotid artery with 50 to 69% stenosis. Less than 50% stenosis left external carotid artery Patent antegrade vertebral arteries bilaterally The significant amount of plaque at the proximal right internal carotid artery with lack of a clear visualized lumen places the current interpretation at suspect. Clinical correla tion and further imaging would be appropriate. Ordering Physician: Sukhjinder Ching Referring Physician: Juan Lay Performed By: Jing Bell RVT
== END | disposition home or self-care (01) ==
LOC: CVS 12:43
PROVIDERS: PCP Family Medicine; Referring Provider Surgery; Visit Provider Surgery
DX: I65.29 Occlusion and stenosis of unspecified carotid artery (principal); R55 Syncope and collapse
CPT/HCPCS: 93880

== ENCOUNTER → 2023-05-11 | Outpatient (CLI) | payer MEDICARE, SELFPAY ==
--- NOTE | 2023-05-11 13:38 | ECHOD_ITS ---
Reason For Study: AORTIC VALVE DISORDER, PAF Procedure This was a 2D Doppler, Color Flow transthoracic echocardiogram. The study was technically difficult. Exam performed in department. Left Ventricle Normal LV size. The estimated ejection fraction is 60 %. There is evidence of diastolic dysfunction. No regional wall motion abnormalities noted. Right Ventricle Normal RV size. Normal systolic function. Atria The left atrium is mildly enlarged. Normal right atrium. No doppler evidence for ASD. Mitral Valve There is no mitral valve stenosis. Moderate (2+) mitral valve insufficiency. Tricuspid Valve There is no tricuspid stenosis. Unable to estimate RV systolic pressure due to inadequate jet, pulmonary artery pressure probably normal. Aortic Valve Moderate diffuse aortic valve thickening. Mild aortic stenosis. Mild-Moderate (1-2+) aortic valve insufficiency. Pulmonic Valve There is no pulmonic valvular stenosis. No pulmonic valve insufficiency. Great Vessels Normal aortic root. Pericardium/Pleural No pericardial effusion. MMode/2D Measurements & Calculations LVIDd: 5.2 cm IVSd: 1.3 cm LVOT diam: 2.2 cm LVIDs: 3.8 cm LVPWd: 0.99 cm LVOT area: 3.9 cm2 RVDd: 3.8 cm FS: 27.5 % LAV(MOD-bp): 93.6 ml LVAd ap4: 37.5 cm2 LVAd ap2: 36.6 cm2 LAV(MOD-bp) Indexed: 41.4 ml/m2 LVLd ap4: 9.2 cm LVLd ap2: 9.5 cm LAV(MOD-sp2): 88.9 ml EDV(MOD-sp4): 122.6 ml EDV(MOD-sp2): 115.7 ml LAV(MOD-sp4): 88.9 ml EDV(sp4-el): 129.4 ml EDV(sp2-el): 119.7 ml LVAs ap4: 24.2 cm2 LVAs ap2: 23.5 cm2 LVLs ap4: 7.7 cm LVLs ap2: 8.2 cm ESV(MOD-sp4): 63.3 ml ESV(MOD-sp2): 57.3 ml ESV(sp4-el): 64.7 ml ESV(sp2-el): 57.3 ml EF(MOD-sp4): 48.4 % EF(MOD-sp2): 50.5 % EF(sp4-el): 50.0 % SV(MOD-sp4): 59.3 ml SV(MOD-sp2): 58.5 ml SV(sp4-el): 64.7 ml LA dimension(2D): 5.6 cm LA A4 area: 23.8 cm2 Doppler Measurements & Calculations MV E max danilo: 98.7 cm/sec Lat Peak E' Danilo: 6.1 cm/sec Med Peak E' Danilo: 5.0 cm/sec E/E' lat: 16.2 E/E' med: 19.9 Ao V2 max: 298.7 cm/sec AI max danilo: 432.7 cm/sec LV V1 max: 100.2 cm/sec Ao max P.7 mmHg AI max P.0 mmHg LV V1 max P.0 mmHg Ao V2 mean: 191.6 cm/sec AI dec slope: 150.3 cm/sec2 LV V1 mean P.9 mmHg Ao mean P.1 mmHg AI P1/2t: 843.4 msec LV V1 mean: 63.5 cm/sec Ao V2 VTI: 62.3 cm LV V1 VTI: 21.5 cm AV (velocity ratio): 0.34 RAEGAN(I,D): 1.3 cm2 RAEGAN(V,D): 1.3 cm2 MR max danilo: 423.9 cm/sec SV(LVOT): 83.3 ml PA V2 max: 66.9 cm/sec MR max P.9 mmHg ECHO/Echo Complete Interpretation Summary The estimated ejection fraction is 60 %. There is evidence of diastolic dysfunction. The left atrium is mildly enlarged. Moderate (2+) mitral valve insufficiency. Mild aortic stenosis. Mild-Moderate (1-2+) aortic valve insufficiency. Ordering Physician: Checo Pimentel Referring Physician: Juan Lay Performed By: Casa CARNES RDCS, Renay and Student
== END | disposition home or self-care (01) ==
PROVIDERS: PCP Family Medicine; Referring Provider Nurse Practitioner Family; Visit Provider Nurse Practitioner Family
DX: I35.1 Nonrheumatic aortic (valve) insufficiency (principal); I48.0 Paroxysmal atrial fibrillation; I10 Essential (primary) hypertension; E78.5 Hyperlipidemia, unspecified; I49.3 Ventricular premature depolarization
CPT/HCPCS: 93306

== ENCOUNTER → 2023-06-29 | Outpatient (CLI) | payer MEDICARE, SELFPAY ==
--- NOTE | 2023-06-29 09:54 | CDU_ITS ---
Reason For Study: carotid stenosis Rt. Velocities/BP Lt. Velocities/BP Prox CCA 41.9/7.8 cm/sec. Prox CCA 69.6/22.3 cm/sec. Mid CCA 33.3/6.9 cm/sec. Mid CCA 63.0/19.0 cm/sec. Dist CCA 25.8/6.0 cm/sec. Dist CCA 50.9/21.2 cm/sec. Unable to demonstrate flow in the R ICA. Prox ICA 75.1/28.9 cm/sec. Prox ECA 117.0/18.8 cm/sec. Mid ICA 90.5/34.4 cm/sec. Rt. Vert. 33.0/16.3 cm/sec. Dist ICA 90.5/31.1 cm/sec. Lt. ICA/CCA = 1.4. Prox ECA 79.5/9.1 cm/sec. Lt. Vert. 38.8/6.9 cm/sec. Right Extracranial There is heterogeneous, irregular atherosclerotic plaque noted in the right common carotid artery. There is heterogeneous, irregular atherosclerotic plaque noted in the right internal carotid artery. Unable to demonstrate flow in the R ICA. There is heterogeneous, irregular atherosclerotic plaque noted in the right external carotid artery. Antegrade flow is noted in the right vertebral artery. Left Extracranial There is heterogeneous, irregular atherosclerotic plaque noted in the left common carotid artery. There is heterogeneous, irregular atherosclerotic plaque noted in the left internal carotid artery. There is homogeneous, smooth atherosclerotic plaque noted in the left external carotid artery. Antegrade flow is noted in the left vertebral artery. Procedure Carotid Duplex [id number]. This is a Carotid Duplex examination using B-mode, color flow and specral Doppler. The exam was diagnostic. Exam performed in department. Prelim called to Priti Shields. VL/Carotid Duplex Ultrasound Interpretation Summary Extensive plaque at the proximal right internal carotid artery with no ability to demonstrate current flow. Less than 50% stenosis right external carotid artery Irregular plaque at the proximal left internal carotid artery with less than 50 % stenosis Less than 50% stenosis left external carotid artery Patent antegrade vertebral arteries bilaterally Previously on June 22, 2022 there was 50 to 69% stenosis of the right inte rnal carotid artery now and no flow was detected. Ordering Physician: Sukhjinder Ching Performed By: Catarino Zuñiga RVT
== END | disposition home or self-care (01) ==
LOC: CVS 09:52
PROVIDERS: PCP Family Medicine; Referring Provider Surgery; Visit Provider Surgery
DX: R55 Syncope and collapse (principal)
CPT/HCPCS: 93880

== ENCOUNTER → 2023-10-28 | Outpatient (CLI) | payer MEDICARE, SELFPAY ==
--- NOTE | 2023-10-28 10:39 | CDU_ITS ---
Reason For Study: Carotid stenosis Rt. Velocities/BP Lt. Velocities/BP Prox CCA 32.2/4.5 cm/sec. Prox CCA 68.3/21.2 cm/sec. Mid CCA 33.7/7.3 cm/sec. Mid CCA 62.2/22.1 cm/sec. Dist CCA 27.3/7.3 cm/sec. Dist CCA 53.5/20.3 cm/sec. ICA, No flow. Prox ICA 65.5/25.8 cm/sec. Prox ECA 90/16.3 cm/sec. Mid ICA 97.4/35.3 cm/sec. Rt. Vert. 61.3/22.9 cm/sec. Dist ICA 58.9/19.2 cm/sec. Lt. ICA/CCA = 1.57. Prox ECA 78.7/15.4 cm/sec. Lt. Vert. 24.4/6.6 cm/sec. Right Extracranial There is heterogeneous, irregular atherosclerotic plaque noted in the right common carotid artery. There is heterogeneous, irregular atherosclerotic plaque noted in the right internal carotid artery. No flow noted in the right ICA. There is heterogeneous, irregular atherosclerotic plaque noted in the right external carotid artery. Antegrade flow is noted in the right vertebral artery. Left Extracranial There is heterogeneous, irregular atherosclerotic plaque noted in the left common carotid artery. There is heterogeneous, irregular atherosclerotic plaque noted in the left internal carotid artery. There is heterogeneous, irregular atherosclerotic plaque noted in the left external carotid artery. Antegrade flow is noted in the left vertebral artery. Procedure Carotid Duplex [id number]. This is a Carotid Duplex examination using B-mode, color flow and specral Doppler. Exam performed in department. VL/Carotid Duplex Ultrasound Interpretation Summary Extensive heterogenous plaque at the proximal right internal carotid artery wit h no flow identified. 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 There has been no acute changes. Ordering Physician: Branden Velez Referring Physician: Juan Lay Performed By: Jing Bell RVT
--- OUTSIDE RECORDS SUMMARY | 2023-10-28 11:00 | XMS RPT_ITS | CCD ---
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 states he feels well, has not been experiencing exertional shortness of breath, chest pain and has not had recurrence of syncope or near syncope or even severe lightheadedness. I have confirmed and edited as necessary, the PFSH and ROS obtained by others. 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 HLD (hyperlipidemia) HTN (hypertension) Nonrheumatic aortic valve insufficiency Nonsustained ventricular tachycardia (HCC) Paroxysmal atrial fibrillation (HCC) Right bundle branch block (RBBB) with left anterior fascicular block (LAFB) Sick sinus syndrome (HCC) Syncope and collapse about 03/2021 TIA (transient ischemic attack) Wide-complex tachycardia (HCC) PAST SURGICAL HISTORY Procedure Laterality Date ARTHROPLASTY Left (L) KNEE CARDIAC CATH 11/18/2021 no significant CAD except small OM branch occluded but with collaterals; [facility] ECHOCARDIOGRAM 04/16/2021 LVEF 65% HOLTER MONITOR 24 HOUR 09/08/2021 STRESS TEST PHARMACOLOGIC-NUCLEAR 09/18/2021 SOCIAL HISTORY Social History Tobacco Use Smoking status: Former Smoker Smokeless tobacco: Never Used Substance Use Topics Alcohol use: Yes Comment: OCCAS. Drug use: Never FAMILY HISTORY Problem Relation Age of Onset Heart disease Mother Diabetes Mother other (CVA) Mother Heart disease Father other (MYOCARDIAL INFARCTION) Father Heart disease Sister Heart disease Brother Diabetes Brother Hypertension Brother ALLERGIES: ALLERGIES Allergen Reactions Rosuvastatin Other: See Comments MEDICATIONS: ELIQUIS 2.5 mg tab tab(s), Take 2.5 mg by mouth twice daily. ascorbic acid, vitamin C, (VITAMIN C) 500 mg tablet, Take 500 mg by mouth once daily. levoFLOXacin (LEVAQUIN) 500 mg tablet, Take 500 mg by mouth once daily. pravastatin (PRAVACHOL) 40 mg tablet, Take 40 mg by mouth once daily. amLODIPine (NORVASC) 5 mg tablet, Take 5 mg by mouth once daily. lisinopril (ZESTRIL, PRINIVIL) 40 mg tablet, Take 40 mg by mouth once daily. Multivitamin capsule, Take 1 capsule by mouth once daily. REVIEW OF SYSTEMS: Review of Systems Constitutional: Negative for chills and fever. Respiratory: Negative for cough, hemoptysis, sputum production and shortness of breath. Cardiovascular: Negative for chest pain, palpitations, orthopnea and PND. Gastrointestinal: Negative for abdominal pain, blood in stool, nausea and vomiting. Genitourinary: Negative for hematuria. Skin: Negative for rash. Neurological: Negative for dizziness and loss of consciousness. PHYSICAL EXAMINATION: BP 138/70 Pulse 43 Ht 6' 0 (1.83m) Wt 218 lb (98.9kg) SpO2 97% BMI 29.56 kg/(m^2). Physical Exam Vitals reviewed. Constitutional: General: He is not in acute distress. HENT: Head: Normocephalic and atraumatic. Cardiovascular: Rate and Rhythm: Regular rhythm. Bradycardia present. Heart sounds: Normal heart sounds, S1 normal and S2 normal. No murmur heard. No friction rub. Pulmonary: Effort: Pulmonary effort is normal. No respiratory distress. Breath sounds: Normal breath sounds. No wheezing, rhonchi or rales. Abdominal: General: Bowel sounds are normal. Palpations: Abdomen is soft. Tenderness: There is no abdominal tenderness. Musculoskeletal: Cervical back: Neck supple. Skin: General: Skin is warm and dry. Neurological: General: No focal deficit present. Mental Status: He is alert and oriented to person, place, and time. Psychiatric: Mood and Affect: Mood normal. Behavior: Behavior normal. Thought Content: Thought content normal. CARDIOVASCULAR MEDICINE TESTING: Electrocardiogram: Sinus bradycardia 44 bpm; first-degree AV block (ID 232 ms); right bundle branch block and LAFB (QRS 164 ms); QTc 436 ms; possible septal infarct pattern I have personally reviewed the Electrocardiogram. ASSESSMENT/PLAN: 1. Sick sinus syndrome (HCC) - ICD9: 427.81, ICD10: I49.5 (primary diagnosis) 2. Wide-complex tachycardia (HCC) - ICD9: 427.1, ICD10: I47.2 3. Nonsustained ventricular tachycardia (HCC) - ICD9: 427.1, ICD10: I47.2 4. Right bundle branch block (RBBB) with left anterior fascicular block (LAFB) - ICD9: 426.52, ICD10: I45.2 5. Atrioventricular block, first degree - ICD9: 426.11, ICD10: I44.0 6. Syncope and collapse - ICD9: 780.2, ICD10: R55 7. Paroxysmal atrial fibrillation (HCC) - ICD9: 427.31, ICD10: I48.0 IMPRESSION: Mr. Driver has been referred to me for evaluation of arrhythmia. He does have evidence for sinus node dysfunction with substantial sinus bradycardia, although this is not clearly symptomatic at the present time. He has evidence for advanced AV conduction system disease, with trifascicular block --- first degree AV block, right bundle branch block, left anterior fascicular block. This is not in and of itself an indication for cardiac pacing, although it is concerning in the light of the prior syncopal episode. That episode occurred almost a year ago and has not recurred. He is not experiencing severe lightheadedness, near-syncope or syncope more recently. If the syncope had not been so long ago, or if had been recurrent, I would consider an EP study to evaluate the HV interval in particular, as severe infra-Hisian delay or block would be a potential indication for cardiac pacemaker. At this point, so far for moved from a single syncopal episode that occurred while he was mowing grass, I think we should repeat cardiac monitoring this time with a 2-week patch electrode monitor. The 24-hour ambulatory Holter monitor report with rhythm strips that was faxed to me from the [facility] office is very poor quality, I cannot make out much of the rhythm strips at all. There does appear to be some brief episodes of NSVT. I think it would be best to just repeat the monitoring with longer duration monitoring. I would not recommend EP study at this point, for the HV interval evaluation or for possible inducible VT. The latter tends to be irrelevant in the setting of preserved LV systolic function so the significance of inducible VT would be very much questionable prognostic value. I would agree that if treatment with a beta-ashley is desirable, he would need a pacemaker to allow for such therapy. I will see what Dr. Moodispaw thinks in this regard, and in the meantime Dr. Escudero can have a 2-week monitor placed. I had a detailed discussion with Mr. Driver regarding my evaluation and recommendations. After our discussion, Mr. Driver expressed his understanding and I answered all his questions to his apparent satisfaction. He agrees to proceed as outlined. PLAN AND RECOMMENDATIONS: No EP study or pacemaker currently indicated or recommended. The latter would be necessary and indicated if beta-ashley therapy is considered essential. Repeat cardiac monitoring with 2-week patch electrode monitor (can be ordered and placed in [facility] for convenience ). Return in about 6 months (around 06/18/2022) for appt with Dr. Xie, with EKG. Sukhjinder Xie MD 12/16/2021 Medical Decision Making: Problems: Moderate: New problem with uncertain prognosis Data: Unique source(s) for external note(s) reviewed: 3+ Unique test result(s) reviewed: 3+ Unique test(s) ordered: 1 Risk: Moderate: Moderate risk from testing/treatment, Drug management and Decision on minor surgery w/ risk factors Medical Decision Making Level: 4 - Moderate documented in this encounter [facility] 12-16-2021 Nurse Note No cardiac complaints today. Sharonda Crandall MA documented in this encounter [facility] Evaluation + Plan note No data available for this section [facility] Diagnosis Paroxysmal atrial fibrillation (HCC)- Primary Atrial fibrillation Sick sinus syndrome (HCC) Sinoatrial node dysfunction Anticoagulant long-term use Long-term (current) use of anticoagulants Essential hypertension, benign [facility] Diagnosis Malignant neoplasm of prostate (HCC)- Primary Malignant neoplasm of prostate History of radiation therapy Personal history of irradiation, presenting hazards to health documented [facility]* Diagnosis Malignant neoplasm of prostate (HCC)- Primary Malignant neoplasm of prostate Rising PSA following treatment for malignant neoplasm of prostate History of radiation therapy Personal history of irradiation, presenting hazards to health [facility] Discharge instructions No data available for this section [facility] Progress note No data available for this section [facility] Summary Purpose Family History No Family History Records FoundNo Family History Records Found No data available for this section No Family History Records FoundNo Family History Records Found Advance Directives No Advanced Directives Records FoundDocuments on File Type Date Recorded Patient Electromechanical Assembler Expl anation Advance Directive(s) 12/26/2015 4:10 PM Medications Administered Section Administered Medications Medication Order MAR Action Action Date Dose Rate Site Tuberculin Skin Test, unspecified Given 09/05/2019 0.1 ml Tuberculin Skin Test, unspecified Given 09/12/2019 0.1 ml Additional Source Comments (unrecognized sect ion and content) No Status Records FoundNo Status Records FoundNo Status Records FoundNo Status Records Found INFORMATION SOURCE (unrecogn ized section and content) DATE CREATED AUTHOR AUTHOR'S ORGANIZ ATION 01/17/2023 [facility] DATE CREATED AUTHOR AUTHOR'S ORGANIZ ATION 09/23/2023 [facility] ([place]) DATE CREATED AUTHOR AUTHOR'S ORGANIZ ATION 09/27/2023 [facility] Source Comments (unrecognize d section and content) In the event this informatio n is protected by the Federal Confidentiality of Alcohol and Drug Abuse Patient Records regulations: The Federal rules restrict any use of the information to criminally investigate or prosecute any alcohol or drug abuse patient.[facility] the event this information is protected by the Federal Confidentiality of Alcohol and Drug Abuse Patient Records regulations: The Federal rules restrict any use of the information to criminally investigate or prosecute any alcohol or drug abuse patient.[facility] the event this information is protected by the Federal Confidentiality of Alcohol and Drug Abuse Patient Records regulations: The Federal rules restrict any use of the information to criminally investigate or prosecute any alcohol or drug abuse patient.[facility] Reason for Visit (unrecogniz ed section and content) Reason Comments Patient Question Reason Comments CARD Follow Up 6 Month SSS Reason Comments Prostate Cancer Radiation in 2015 Reason Comments Other 6M Lupron injection, discuss PSA results, Pt states they are well no urologic concerns - hx malignant neoplasm of prostate Care Teams (unrecognized sec tion and content) Stone Sandblaster Relationship Specialty Start Date End Date Juan Munguia MD [address] [facility] [address] [place] [address] PCP - General Family Practice 12/16/21 Juan Escudero [address] [facility] [address] [place] [address] Specialty Refractory Bricklayer Cardiology 11/27/21 Stone Sandblaster Relationship Specialty Start Date End Date Juan Munguia MD [address] [facility] [address] [address] [place], [place] [id number] PCP - General Family Medicine 12/16/21 Juan Escudero [address] [place] [address] Specialty Refractory Bricklayer Cardiology 11/27/21 Stone Sandblaster Relationship Specialty Start Date End Date Juan Munguia MD [address] [facility] [address] [place] [id number] PCP - General 07/29/21 Dane Lepe MD [address] [facility] [address] [place] [address] Surgeon Urology 03/04/23 Care Team (unrecognized sect ion and content) Care Team Personnel Name: Mil Cobb Clerkasey Finney PT Position: P3 Scheduling - Plating Foreman Advanced Member Role: Other Name: JUAN MUNGUIA MD Member Role: Primary Care Physician Address: Address: [address] [facility] [address] Care Team Related Persons Name: HERBERTH DRIVER Address: Home [address] [place] [address] [place] Name: JANELL DONAHUE Care Team Personnel Name: Mil Cobb PT Position: P3 Scheduling - Plating Foreman Advanced Member Role: Other Name: JUAN MUNGUIA MD Member Role: Primary Care Physician Address: Address: [address] [facility] [address] Care Team Related Persons Name: HERBERTH DRIVER Address: Home [address] [place] [address] [place] Name: JANELL DONAHUE Care Team Personnel Name: Mil Cobb PT Position: P3 Scheduling - Plating Foreman Advanced Member Role: Other Name: JUAN MUNGUIA MD Member Role: Primary Care Physician Address: Address: [address] [facility] [address] Care Team Related Persons Name: HERBERTH DRIVER Address: Home [address] [place] [address] [place] Name: JANELL DONAHUE FOR RECORDS PERTAINING TO PATIENTS WHO ARE OR HAVE BEEN ENROLLED IN A CHEMICAL DEPENDENCY/SUBSTANCEABUSE PROGRAM, SOME INFORMATION MAY BE OMITTED. This clinical summary was aggregated from multiple sources. Caution should be exercised in using it in the provision of clinical care. This summary normalizes information from multiple sources, and as a consequence, information in this document may materially change the coding, format and clinical context of patient data. In addition, data may be omitted in some cases. CLINICAL DECISIONS SHOULD BE BASED ON THE PRIMARY CLINICAL RECORDS. [facility]. provides no warranty or guarantee of the accuracy or completeness of information in this document.
== END | disposition home or self-care (01) ==
PROVIDERS: PCP Family Medicine; Referring Provider Internal Medicine Cardiovascular Disease; Visit Provider Internal Medicine Cardiovascular Disease
DX: R55 Syncope and collapse (principal)
CPT/HCPCS: 93880

== ENCOUNTER → 2023-12-21 | Outpatient (CLI) | payer MEDICARE, SELFPAY ==
--- NOTE | 2023-12-21 15:13 | CT_ITS ---
STUDY: CT BRAIN WITHOUT CONTRAST REASON FOR EXAM: Male, 83 years old. R ICA occlusion, L ICA stenosis RADIATION DOSAGE (If Supplied By Facility): CTDIvol = ( 27.23 ) mGy, DLP = ( 172.91 ) mGycm TECHNIQUE: Transaxial CT imaging of the brain was performed without administration of intravenous contrast material. Individualized dose optimization techniques were used for this CT. COMPARISON: None. FINDINGS: Moderate parenchymal loss and chronic hypodensity in the posterior aspect of the right frontal lobe is most likely due to an old infarct or old trauma. Normal soft tissue structures. Normal calvarium. There is moderate cerebral atrophy with widening of the extra-axial spaces and ventricular dilatation. There are areas of decreased attenuation within the white matter tracts of the supratentorial brain, consistent with microvascular disease changes. There are small punctate calcifications of the basal ganglia which are seen in the aging brain as a normal variant. Normal brainstem. Normal cerebellum. There is no intracranial hemorrhage. There are no findings of an acute ischemic infarction. Normal visualized paranasal sinuses. IMPRESSION: Normal unenhanced CT scan of the brain. STUDY: CTA HEAD AND NECK WITH CONTRAST REASON FOR EXAM: Male, 83 years old. R ICA occlusion, L ICA stenosis RADIATION DOSAGE (If Supplied By Facility): CTDIvol = ( 27.23 ) mGy, DLP = ( 172.91 ) mGycm TECHNIQUE: CT angiography was performed with a multi-detector CT scanner. Data acquisition was obtained from the skull base through the vertex following intravenous administration of IV 100mL [id number]-[id number]. MIP images were reconstructed from the axial data set. Post-processing of the angiographic images was performed, with multiplanar reformation and 3D reconstruction. Individualized dose optimization techniques were used for this CT. COMPARISON: No relevant priors. 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 A collateral vessel is seen at the terminus of the right ICA connecting with the posterior communicating and middle cerebral arteries. Normal petrous and cavernous segments of the left internal carotid artery. Mild atherosclerotic plaque is present in the cavernous segment of the left internal carotid artery with no more than 10% focal luminal stenosis. Normal right A1 segments of the anterior cerebral artery. Normal left A1 segments of the anterior cerebral artery. Normal intact anterior communicating artery (ACOM). Normal bilateral A2 segments of the anterior cerebral arteries. Normal right M1 and M2 segments of the middle cerebral arteries, with a normal M1 bifurcation. Normal left M1 and M2 segments of the middle cerebral arteries, with a normal M1 bifurcation. Normal right posterior communicating artery (PCOM). Normal left posterior communicating artery (PCOM). 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 The intracranial aspect of the right vertebral artery is normal. Normal basilar artery with a normal basilar bifurcation. The visualized bilateral superior cerebellar (SCA) arteries are normal. Normal bilateral P1, P2 and visualized P3 segments of the posterior cerebral arteries. There is no demonstrated aneurysm of the [place] of [place]. AORTIC ARCH: There is atherosclerotic calcific plaque formation of the aortic arch and great vessels arising from the aortic arch, without a hemodynamically significant stenosis. There is a normal origin of the brachiocephalic, left common carotid, and left subclavian arteries. Normal origins of the brachiocephalic, left common carotid, and left subclavian arteries. RIGHT CAROTID ARTERIES: Normal right common carotid artery (CCA). There is extensive atherosclerotic plaque formation with severe narrowing of the right carotid bulb with a hemodynamically significant stenosis. There is complete occlusion of the origin of the right internal carotid artery without demonstrated arterial flow. Normal origin of the right external carotid artery (ECA). LEFT CAROTID ARTERIES: Normal left common carotid artery (CCA). There is moderate atherosclerotic plaque formation with moderate narrowing of the carotid bulb. There is mild atherosclerotic plaque formation of the origin of the left internal carotid artery with less than 50% cross sectional diameter stenosis. Normal visualized cervical portion of the left internal carotid artery. Normal origin of the left external carotid artery (ECA). VERTEBRAL ARTERIES: Normal bilateral vertebral arteries. CT/CTA Head AND Neck W/ Contrast IMPRESSION: 1. 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
[2023-12-21 15:48] LABS: CREATININE FINGERSTICK < 1.0 mg/dL (0.70-1.30); EGFR FINGERSTICK > 60.0000 mL/min (>60)
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
== END | disposition home or self-care (01) ==
LOC: CT 15:12
PROVIDERS: PCP Family Medicine; Referring Provider Physician Assistant; Visit Provider Physician Assistant
DX: I65.29 Occlusion and stenosis of unspecified carotid artery (principal)
CPT/HCPCS: 70496; 70498; Q9967

== ENCOUNTER 2024-01-01 12:51 | Emergency (ER) | payer MEDICARE, SELFPAY ==
[2024-01-01 12:52] VITALS: BP 174/97; PULSE 66; RESP 16; TEMP 36.1; O2SAT 97; BMI 28.6
--- NOTE | 2024-01-01 13:40 | EX.ED.DYSGE1 ---
HPI <CHRISTI Montelongo - Last Filed: 01/01/24 19:35> History of Present Illness Chief Complaint: Abd Pain Narrative Narrative: 83-year-old male with PMH of HTN, HLD, A-fib had breakfast with sausage, eggs and coffee at 8:30 AM and around 10 AM developed right upper quadrant abdominal pain. He states has never had this before. No nausea or vomiting. He is mildly constipated earlier this week which resolved with stool softeners and his last bowel movement was yesterday. No melena or hematochezia. Normal urination. Denies abdominal surgeries. He does not smoke and drinks alcohol very rarely. PFSH <CHRISTI Montelongo - Last Filed: 01/01/24 19:35> PFSH Medical History Carotid stenosis Essential hypertension Frequent PVCs History of DVT (deep vein thrombosis) History of radiation therapy Hyperlipidemia Iron deficiency anemia Osteoarthritis Paroxysmal atrial fibrillation Tachycardia-bradycardia Home Medications lisinopril 40 mg tablet 40 mg PO DAILY 09/18/19 [History Last Taken 11/18/21] pravastatin 40 mg tablet 40 mg PO QHS 09/18/19 [History Last Taken Unknown] apixaban 2.5 mg tablet (Eliquis) 2.5 mg PO BID 05/28/22 [History Last Taken Unknown] ascorbic acid (vitamin C) 500 mg tablet 500 mg PO DAILY 05/28/22 [History Last Taken Unknown] aspirin 81 mg tablet,delayed release (Adult Aspirin Regimen) 81 mg PO DAILY 07/16/23 [History Last Taken Unknown] multivit with min-folic acid-lutein 400 mcg-250 mcg chewable tablet (Centrum Silver) 1 tab PO DAILY 11/10/23 [History Last Taken Unknown] Allergy/AdvReac Type Severity Reaction Status Date / Time No Known Allergies Allergy Verified 01/01/24 12:57 Family History Father , Age 47 Myocardial infarction Heart disease Mother Heart disease Diabetes CVA (cerebral vascular accident) Brother Heart disease Diabetes Hypertension Sister Heart disease Surgical History History of arthroplasty of left knee History of left heart catheterization (LHC) (~11/18/21) History of open reduction and internal fixation (ORIF) procedure (08/24/19) Social History Smoking Status: Former smoker how long ago did patient quit smokin years ago alcohol intake: current alcohol intake frequency: a few times a month substance use type: does not use caffeine: Yes Type: coffee Number of servings: 3 ROS <CHRISTI Montelongo - Last Filed: 01/01/24 19:35> ROS ED ROS Narrative Constitutional: Negative for fever, chills, malaise. CVS: Negative for chest pain. Respiratory: Negative for shortness of breath, cough. GI: Positive for abdominal pain. Negative nausea, vomiting, diarrhea, melena, hematochezia. : Negative for dysuria, hematuria or frequency. EXAM <CHRISTI Montelongo - Last Filed: 01/01/24 19:35> Physical Exam Narrative Exam Narrative: CONST: Patient sitting in no acute distress. EYES: Normal inspection. NECK: Normal inspection. RESP: No respiratory distress, CTAB. CVS: Regular rate and rhythm, no murmur, no gallop. ABD: Soft with RUQ tenderness, negative Espino sign, no guarding or rebound, nondistended, no hepatosplenomegaly. SKIN: Color normal, no rash, warm, dry, intact. EXTREMITIES: Normal appearance, no pedal edema. NEURO: Alert and oriented, answering questions appropriately. PSYCH: Normal affect. Const Vital Signs: 01/01/24 12:52 01/01/24 14:52 01/01/24 16:00 Temperature 96.9 F L 96.8 F L 96.8 F L Temperature Source Temporal Temporal Temporal Pulse Rate 66 67 59 L Respiratory Rate 16 18 16 Blood Pressure 174/97 H 111/75 119/59 L Blood Pressure Mean 122 87 79 Pulse Ox 97 97 98 Oxygen Delivery Method Room Air Room Air Room Air 01/01/24 18:00 Temperature 97 F L Temperature Source Temporal Pulse Rate 78 Respiratory Rate 20 H Blood Pressure 144/85 H Blood Pressure Mean 104 Pulse Ox 96 Oxygen Delivery Method Room Air <Dr. Alejandro Fontaine MD - Last Filed: 01/01/24 19:47> Physical Exam Const Vital Signs: 01/01/24 12:52 01/01/24 14:52 01/01/24 16:00 Temperature 96.9 F L 96.8 F L 96.8 F L Temperature Source Temporal Temporal Temporal Pulse Rate 66 67 59 L Respiratory Rate 16 18 16 Blood Pressure 174/97 H 111/75 119/59 L Blood Pressure Mean 122 87 79 Pulse Ox 97 97 98 Oxygen Delivery Method Room Air Room Air Room Air 01/01/24 18:00 Temperature 97 F L Temperature Source Temporal Pulse Rate 78 Respiratory Rate 20 H Blood Pressure 144/85 H Blood Pressure Mean 104 Pulse Ox 96 Oxygen Delivery Method Room Air [facility] <CHRISTI Montelongo - Last Filed: 01/01/24 19:35> [facility] Narrative Medical decision making narrative: History gathered from: Patient and son Differential: Biliary colic, cholecystitis, pancreatitis Consults: Surgeon, ED at [facility] Patient developed RUQ abdominal pain after eating breakfast. No history of similar symptoms. He appears well and nontoxic. Afebrile with normal vital signs. He has normal cardiopulmonary exam and he is tender in the RUQ with no peritoneal signs and negative Espino sign. Labs show normal white count of 7.3, hemoglobin 12.1, normal LFTs and lipase. Ultrasound is consistent with gallstones and acute cholecystitis. IV Zosyn was ordered. Case was discussed with on-call surgeon, Dr. Saleem, who states patient needs to be transferred since he is on [facility]. Patient's preference is [facility] so I spoke with the transfer line and he was accepted under the surgeon Dr. Tobar. I provided report to ED [facility] physician and patient is awaiting transfer. I have personally performed a face to face assessment of the patient and have reviewed the MAUREEN Note. I performed a substantive portion of the visit including all aspects of the following. My fox findings include: History is remarkable for right upper quadrant pain 2 and half hours after having eggs, toast with butter and sausages at the [facility] He eats there every Wednesday. He denies history of gallbladder disease. He denies history of intolerance to greasy or fried foods. Pain did not radiate. He denies cough or shortness of breath. Nuys chest discomfort. He denies pain with breathing. The pain was constant sharp with waxing waning intensity. Exam is in no obvious distress. I saw him after he received his morphine since he was initially seen by the physician mri assistant. Vital signs noted. He initially was hypertensive. Since he is now pain-free and his blood pressure is normal. He is not febrile. HEENT exam is unremarkable. Lungs are clear auscultation. Heart is regular. Rate is normal. There are no murmur, gallop or rub. Abdomen is soft with minimal tenderness in right upper quadrant. Negative clinical Espino sign. Bowel sounds are increased. There is slight tympany to percussion. There is no CVA tenderness noted. Lower extremity exam is unremarkable. Medical Decision Making differential diagnosis would include GERD, peptic ulcer disease, biliary colic, cholelithiasis, cholecystitis right lower lobe pneumonia. Doubt the latter since he is not tachycardic febrile hypoxic or tachypneic. Furthermore there is no abnormal respiratory sounds. Appropriate blood work was obtained. Ultrasound was ordered. Ultrasound was not performed until after 3 in light of what he ate. Other additions or changes: Transfer patient per surgeons request. Lab Data Attestation: I reviewed the patient's lab results. Labs: Laboratory Results - last 24 hr 01/01/24 14:25 WBC 7.3 RBC 3.97 L Hgb 12.1 L Hct 36.6 L MCV 92.2 MCH 30.5 MCHC 33.1 RDW Std Deviation 45.2 H RDW Coeff of Declan 13.3 Plt Count 224 MPV 8.6 Immature Gran % (Auto) 0.400 Neut % (Auto) 71.4 H Lymph % (Auto) 16.1 L Uinta % (Auto) 8.2 Eos % (Auto) 3.4 Baso % (Auto) 0.5 Absolute Neuts (auto) 5.2 Absolute Lymphs (auto) 1.17 Nucleated RBC % 0 Sodium 138 Potassium 4.1 Chloride 106 Carbon Dioxide 26.0 Anion Gap 6 BUN 15 Creatinine 0.78 Estim Creat Clear Calc 90.46 Est GFR (MDRD) Af Amer 123 Est GFR (MDRD) Non-Af 102 BUN/Creatinine Ratio 19.4 Glucose 106 Calcium 9.4 Total Bilirubin 0.70 AST 24 ALT 24 Alkaline Phosphatase 46 Total Protein 6.9 Albumin 3.7 Globulin 3.2 Albumin/Globulin Ratio 1.2 Lipase 33 Radiography Diagnostic Testing: Clinical Impression(s) from Imaging Studies Gallbladder Ultrasound 01/01/24 15:15 IMPRESSION: 1. Suspect acute cholecystitis with cholelithiasis, gallbladder hydrops, pericholecystic fluid, and a positive sonographic Espino''s sign. 2. Fatty infiltration liver. Electronically Signed: Angel Villa MD at 16:59 EDT , ADDENDUM: 01/01/24 1713 IMPRESSION: 1. Suspect acute cholecystitis with cholelithiasis, gallbladder hydrops, pericholecystic fluid, and a positive sonographic Espino''s sign. 2. Fatty infiltration liver. N.B. : The above Results were Read Back by Angel Villa MD to Alejandro Fontaine MD, and understanding confirmed on 01/01/2024 17:07:00 (ET). Electronically Signed: Angel Villa MD at 16:59 EDT , <Dr. Alejandro Fontaine MD - Last Filed: 01/01/24 19:47> MDM MDM Narrative Medical decision making narrative: History gathered from: Patient and son Differential: Biliary colic, cholecystitis, pancreatitis Consults: Surgeon, ED at [facility] Patient developed RUQ abdominal pain after eating breakfast. No history of similar symptoms. He appears well and nontoxic. Afebrile with normal vital signs. He has normal cardiopulmonary exam and he is tender in the RUQ with no peritoneal signs and negative Espino sign. Labs show normal white count of 7.3, hemoglobin 12.1, normal LFTs and lipase. Ultrasound is consistent with gallstones and acute cholecystitis. IV Zosyn was ordered. Case was discussed with on-call surgeon, Dr. Saleem, who states patient needs to be transferred since he is on Eliquis. Patient's preference is [facility] so I spoke with the transfer line and he was accepted under the surgeon Dr. Tobar. I provided report to ED [facility] physician and patient is awaiting transfer. I have personally performed a face to face assessment of the patient and have reviewed the MAUREEN Note. I performed a substantive portion of the visit including all aspects of the following. My fox findings include: History is remarkable for right upper quadrant pain 2 and half hours after having eggs, toast with butter and sausages at the [employer]. He eats there every Wednesday. He denies history of gallbladder disease. He denies history of intolerance to greasy or fried foods. Pain did not radiate. He denies cough or shortness of breath. Nuys chest discomfort. He denies pain with breathing. The pain was constant sharp with waxing waning intensity. Exam is in no obvious distress. I saw him after he received his morphine since he was initially seen by the physician mri assistant. Vital signs noted. He initially was hypertensive. Since he is now pain-free and his blood pressure is normal. He is not febrile. HEENT exam is unremarkable. Lungs are clear auscultation. Heart is regular. Rate is normal. There are no murmur, gallop or rub. Abdomen is soft with minimal tenderness in right upper quadrant. Negative clinical Espino sign. Bowel sounds are increased. There is slight tympany to percussion. There is no CVA tenderness noted. Lower extremity exam is unremarkable. Medical Decision Making differential diagnosis would include GERD, peptic ulcer disease, biliary colic, cholelithiasis, cholecystitis right lower lobe pneumonia. Doubt the latter since he is not tachycardic febrile hypoxic or tachypneic. Furthermore there is no abnormal respiratory sounds. Appropriate blood work was obtained. Ultrasound was ordered. Ultrasound was not performed until after 3 in light of what he ate. Other additions or changes: Transfer patient per surgeons request. The physician mri assistant spoke with the transfer line and patient was accepted by general surgery at [facility]. Lab Data Lab results narrative: White count is normal. H&H is 12.1 and 36.6. Indices are normal. Comprehensive metabolic panel is. Lipase is normal. Labs: Laboratory Results - last 24 hr 01/01/24 14:25 WBC 7.3 RBC 3.97 L Hgb 12.1 L Hct 36.6 L MCV 92.2 MCH 30.5 MCHC 33.1 RDW Std Deviation 45.2 H RDW Coeff of Declan 13.3 Plt Count 224 MPV 8.6 Immature Gran % (Auto) 0.400 Neut % (Auto) 71.4 H Lymph % (Auto) 16.1 L [place] % (Auto) 8.2 Eos % (Auto) 3.4 Baso % (Auto) 0.5 Absolute Neuts (auto) 5.2 Absolute Lymphs (auto) 1.17 Nucleated RBC % 0 Sodium 138 Potassium 4.1 Chloride 106 Carbon Dioxide 26.0 Anion Gap 6 BUN 15 Creatinine 0.78 Estim Creat Clear Calc 90.46 Est GFR (MDRD) Af Amer 123 Est GFR (MDRD) Non-Af 102 BUN/Creatinine Ratio 19.4 Glucose 106 Calcium 9.4 Total Bilirubin 0.70 AST 24 ALT 24 Alkaline Phosphatase 46 Total Protein 6.9 Albumin 3.7 Globulin 3.2 Albumin/Globulin Ratio 1.2 Lipase 33 Radiography Diagnostic Testing: Clinical Impression(s) from Imaging Studies Gallbladder Ultrasound 01/01/24 15:15 IMPRESSION: 1. Suspect acute cholecystitis with cholelithiasis, gallbladder hydrops, pericholecystic fluid, and a positive sonographic Espino''s sign. 2. Fatty infiltration liver. Electronically Signed: Angel Villa MD at 16:59 EDT Reading Location ID and State: [id number] / Ring Tel , Service support , ADDENDUM: 01/01/24 1713 IMPRESSION: 1. Suspect acute cholecystitis with cholelithiasis, gallbladder hydrops, pericholecystic fluid, and a positive sonographic Espino''s sign. 2. Fatty infiltration liver. N.B. : The above Results were Read Back by Angel Villa MD to Alejandro Fontaine MD, and understanding confirmed on 01/01/2024 17:07:00 (ET). Electronically Signed: Angel Villa MD at 16:59 EDT , Management Discussion w/another healthcare provider: Train Brakeman (Dr. Centeno recommended transfer since patient is on oral anticoagulant, apixaban 2.5 mg twice daily.) and Radiologist (Radiologist contacted me informing that patient has acute cholecystitis. Dr. Centeno who is on-call for surgery was paged.) Discharge Plan Triage Chief Complaint: Abd Pain ED Midlevel Provider: Sharmin Lopez ED Provider: Alejandro Fontaine Dx/Rx/DC Orders Clinical Impression: Acute cholecystitis, CAD (coronary artery disease), Essential hypertension, Aortic regurgitation, Anticoagulant long-term use, Hyperlipidemia, Paroxysmal atrial fibrillation Prescriptions: No Action lisinopril 40 mg tablet 40 mg PO DAILY Rx Instructions: Hold for systolic < or = to 100 or diastolic < or = 55. pravastatin 40 mg tablet 40 mg PO QHS Eliquis 2.5 mg tablet 2.5 mg PO BID ascorbic acid (vitamin C) 500 mg tablet 500 mg PO DAILY aspirin [Adult Aspirin Regimen] 81 mg tablet,delayed release (DR/EC) 81 mg PO DAILY Primary Care Provider: Juan Lay Referrals: Juan Lay MD [Primary Care Provider] - Disposition Disposition: Acute Care Hospital Discharge Location: [facility]
[2024-01-01 14:37] LABS: Absolute Lymphocyte Count 1.17 X10^3/uL (0.83-4.51); Absolute Neutrophil Count 5.2 X10^3/uL (2.0-7.7); Basophil# 0.04 X10^3/uL; Basophil% 0.5 % (0-1); Eosinophil# 0.25 X10^3/uL; Eosinophils% 3.4 % (0-5); Hematocrit 36.6 % (40-54); Hemoglobin 12.1 g/dL (13.0-16.5); Lymphocyte # 1.17 X10^3/ul (0.83-4.51); Lymphocyte % 16.1 % (19-41); Mean Corp Hgb Conc 33.1 g/dL (32-36); Mean Corpuscular Hgb 30.5 pg (27.0-32.0); Mean Corpuscular Volume 92.2 fL (80-94); Mean Platelet Vol. 8.6 fl (6.2-12.0); Monocyte% 8.2 % (0-10); NRBC Flagged by Analyzer 0 % (0-5); Neutrophil # 5.19 X10^3/uL (2.7-7.7); Neutrophil % 71.4 % (47-70); Platelet Count 224 K/mm3 (150-450); RBC Distribution Width CV 13.3 % (11.6-14.6); RBC Distribution Width SD 45.2 fl (35.1-43.9); Red Blood Count 3.97 M/mm3 (4.6-6.2); White Blood Count 7.3 K/mm3 (4.4-11.0)
[2024-01-01] MEDS: Morphine 4 MG/ML Syringe IV (14:41)
[2024-01-01] MEDS: Ondansetron 4 MG/2 ML Vial IV (14:41)
[2024-01-01 14:52] VITALS: BP 111/75; PULSE 67; RESP 18; TEMP 36; O2SAT 97
[2024-01-01 14:56] LABS: ALB/GLOB Ratio 1.2 RATIO (0.9-2.4); AST(SGOT) 24 U/L (15-37); Alanine Aminotransfer ALT/SGPT 24 U/L (16-61); Albumin, Serum 3.7 g/dL (3.2-5.0); Alkaline Phosphatase 46 U/L (45-117); Anion Gap 6 (5-15); BUN 15 mg/dL (7-18); BUN/Creat Ratio 19.4 RATIO (10-20); Calcium,Total 9.4 mg/dL (8.5-10.1); Chloride 106 mmol/L (98-107); Creatinine, Serum 0.78 mg/dL (0.70-1.30); EST Glomerular Filtration Rate 102 mL/min (>60); Est Glom Filt Rate - Afr Amer 123 mL/min (>60); Estimated Creatinine Clearance 90.46 ml/min; Globulin 3.2 g/dL (2.2-4.2); Glucose 106 mg/dL (74-106); Lipase 33 U/L (13-75); Potassium 4.1 mmol/L (3.5-5.1); Protein, Total 6.9 g/dL (6.4-8.2); Sodium Level 138 mmol/L (136-145)
--- NOTE | 2024-01-01 15:15 | US_ITS ---
We are attempting to reach an attending provider to discuss findings. An addendum with communication details will be sent when the communication is complete. STUDY: ABDOMINAL ULTRASOUND - RIGHT UPPER QUADRANT REASON FOR VISIT: Male, 83 years old pain RT ABD TECHNIQUE: Ultrasound evaluation of the right upper quadrant was performed with real-time and static lewis-scale imaging. TECHNICAL QUALITY: Adequate. COMPARISON: None. FINDINGS: Liver: The liver measures 19.3 cm. There is increased echogenicity consistent with fatty infiltration. The bile ducts are within normal limits. There is hepatic color flow. The direction of portal flow is hepatopetal. Multiple small hepatic cysts. Gallbladder: There is a markedly distended gallbladder. The gallbladder wall measures 2 mm. There is a positive sonographic Espino''s sign. There is pericholecystic fluid. There are multiple echogenic structures within the gallbladder, consistent with multiple gallstones. Common Bile Duct (C.B.D.): The common bile duct measures 5 mm. Pancreas: There is nonvisualization of the pancreas.. Right Kidney: Normal size of the right kidney. The right kidney measures 11.9 cm. Normal renal cortex. The right cortex measures 1.5 cm. There is no demonstrated renal mass or cyst. There is no right hydronephrosis. US/Gallbladder IMPRESSION: 1. Suspect acute cholecystitis with cholelithiasis, gallbladder hydrops, pericholecystic fluid, and a positive sonographic Espino''s sign. 2. Fatty infiltration liver. Electronically Signed: Angel Villa MD at 16:59 EDT ,
[2024-01-01 16:00] VITALS: BP 119/59; PULSE 59; RESP 16; TEMP 36; O2SAT 98
[2024-01-01] MEDS: Piperacil/Tazobactam 3.375 GM in 0.9% Normal Saline (50mL MB+) 50 ML IV (17:41)
[2024-01-01 18:00] VITALS: BP 144/85; PULSE 78; RESP 20; TEMP 36.1; O2SAT 96
--- NOTE | 2024-01-01 19:09 | ED.RN ---
PT ACCEPTED TO [facility] ER TO ER NOEL MAGALLANES 2-3 HRS 2100/2200
[2024-01-01 20:00] VITALS: BP 152/79; PULSE 56; RESP 17; O2SAT 96
[2024-01-01 21:35] VITALS: BP 143/97; PULSE 87; RESP 17; TEMP 37; O2SAT 100
--- NOTE | 2024-01-01 21:41 | ED.RN ---
Report given to [facility] ER
== END 2024-01-01 22:03 | disposition short-term general hospital (02) ==
PROVIDERS: Physician Assistant; Emergency Provider Emergency Medicine; PCP Family Medicine; Visit Provider Emergency Medicine
DX: K81.0 Acute cholecystitis (principal); I48.0 Paroxysmal atrial fibrillation; E78.5 Hyperlipidemia, unspecified; I25.10 Atherosclerotic heart disease of native coronary artery without angina pectoris; I10 Essential (primary) hypertension; Z79.01 Long term (current) use of anticoagulants; Z87.891 Personal history of nicotine dependence; I35.1 Nonrheumatic aortic (valve) insufficiency; Z79.899 Other long term (current) drug therapy; Z79.82 Long term (current) use of aspirin; Z96.652 Presence of left artificial knee joint
CPT/HCPCS: 76705; 80053; 83690; 85025; 96365; 96375; 99284; A4216; J2405

== ENCOUNTER → 2024-03-28 | Outpatient (CLI) | payer MEDICARE, SELFPAY ==
[2024-03-28 10:58] LABS: ALB/GLOB Ratio 1.1 RATIO (0.9-2.4); AST(SGOT) 24 U/L (15-37); Alanine Aminotransfer ALT/SGPT 28 U/L (16-61); Albumin, Serum 3.8 g/dL (3.2-5.0); Alkaline Phosphatase 61 U/L (45-117); Anion Gap 6 (5-15); BUN 15 mg/dL (7-18); BUN/Creat Ratio 15.8 RATIO (10-20); Calcium,Total 9.4 mg/dL (8.5-10.1); Chloride 107 mmol/L (98-107); Cholesterol 135 mg/dL (200); Creatinine, Serum 0.95 mg/dL (0.70-1.30); EST Glomerular Filtration Rate 81 mL/min (>60); Est Glom Filt Rate - Afr Amer 98 mL/min (>60); Globulin 3.4 g/dL (2.2-4.2); Glucose 89 mg/dL (74-106); High Density Lipoprotein 42 mg/dL; Potassium 4.7 mmol/L (3.5-5.1); Protein, Total 7.2 g/dL (6.4-8.2); Sodium Level 140 mmol/L (136-145); Triglycerides 103 mg/dL; Very Low Density Lipoprotein 21 mg/dL (5-40)
== END | disposition home or self-care (01) ==
LOC: MFPLAB 08:11
PROVIDERS: PCP Family Medicine; Visit Provider Family Medicine
DX: I10 Essential (primary) hypertension (principal)
CPT/HCPCS: 36415; 80053; 80061

== ENCOUNTER 2024-05-06 11:52 | Emergency (ER) | payer MEDICARE, SELFPAY ==
[2024-05-06] VITALS (7 sets, daily range): BP systolic 174–190; BP diastolic 66–99; PULSE 43–75; RESP 11–19; TEMP 36.1–36.6; O2SAT 94–98; BMI 29.0
--- NOTE | 2024-05-06 12:06 | RAD_ITS ---
HISTORY: PAIN. TECHNIQUE: XR Spine Lumbar 2 or 3 Views. COMPARISON: CT 09/25/2015. FINDINGS: VERTEBRAE: Very mild anterior wedging of T11 and L1. Degenerative changes of the posterior elements. Hardware in the left proximal femur. ALIGNMENT: No significant anterior or posterior subluxation. Mild levoscoliosis. INTERVERTEBRAL DISCS: Advanced degenerative changes with intervertebral disc space narrowing at all levels. SOFT TISSUES: Prostate radiotherapy seeds.. RAD/Lumbar Spine 2 or 3 Views IMPRESSION: Mild L1 compression fracture, age indeterminate. Advanced multilevel degenerative change. Mild scoliosis. Electronically Signed: Christie Lynn MD at 13:24 EDT ,
--- NOTE | 2024-05-06 12:06 | EKG12_ITS ---
Test Reason : SOB Blood Pressure : / mmHG Vent. Rate : 075 BPM Atrial Rate : 000 BPM P-R Int : 000 ms QRS Dur : 156 ms QT Int : 452 ms P-R-T Axes : 000 -88 001 degrees QTc Int : 504 ms Atrial fibrillation Left axis deviation Right bundle branch block Abnormal ECG Confirmed by MOLLY LARA, ANN ([id number]), editor publications ROSANA DONAHUE ([id number]) on 05/09/2024 2:18:20 PM Referred By: Confirmed By:EDY BARNES MD
--- NOTE | 2024-05-06 12:07 | EDS_ITS ---
HPI History of Present Illness Chief Complaint: Shortness of Breath Narrative Narrative: 84-year-old male with history of A-fib on Eliquis, hypertension, hyperlipidemia, CAD presenting with shortness of breath. He states that shortness of breath that started this morning. He was having trouble catching his breath when he woke up. He states he also had lower extremity edema for the last 3 days. Patient reports that he has been sleeping in a chair, however this was because he fell a few days ago and hurt his back. It was more comfortable to lay in the chair. He does have shortness of breath with exertion. Denies any chest pain. No fevers or chills. Mild cough. [facility] Medical History Tachycardia-bradycardia Frequent PVCs Carotid stenosis Osteoarthritis Paroxysmal atrial fibrillation History of DVT (deep vein thrombosis) History of radiation therapy Essential hypertension Hyperlipidemia Iron deficiency anemia Home Medications ?Medication ?Instructions ?Recorded ?Last Taken ?Type lisinopril 40 mg tablet 40 mg PO DAILY 09/18/19 11/18/21 History pravastatin 40 mg tablet 40 mg PO QHS 09/18/19 Unknown History apixaban 2.5 mg tablet (Eliquis) 2.5 mg PO BID 05/28/22 Unknown History ascorbic acid (vitamin C) 500 mg 500 mg PO DAILY 05/28/22 Unknown History tablet aspirin 81 mg tablet,delayed 81 mg PO DAILY 07/16/23 Unknown History release (Adult Aspirin Regimen) multivit with min-folic 1 tab PO DAILY 11/10/23 Unknown History acid-lutein 400 mcg-250 mcg chewable tablet (Centrum Silver) amlodipine 2.5 mg tablet 2.5 mg PO DAILY #30 tabs 05/06/24 Unknown Rx furosemide 40 mg tablet (Lasix) 40 mg PO QODAY #30 tabs 05/06/24 Unknown Rx hydrocodone-acetaminophen 5-325mg 1 tab PO Q6H 3 days #12 TABLETS 05/06/24 Unknown Rx 5mg-325mg Allergy/AdvReac Type Severity Reaction Status Date / Time No Known Allergies Allergy Verified 05/06/24 11:53 Family History Father , Age 47 Myocardial infarction Heart disease Mother Heart disease Diabetes CVA (cerebral vascular accident) Brother Heart disease Diabetes Hypertension Sister Heart disease Surgical History History of left heart catheterization (LHC) (~11/18/21) History of open reduction and internal fixation (ORIF) procedure (08/24/19) History of arthroplasty of left knee Social History Smoking Status: Former smoker how long ago did patient quit smokin years ago alcohol intake: current alcohol intake frequency: a few times a month substance use type: does not use caffeine: Yes Type: coffee Number of servings: 3 ROS ROS ED Constitutional Constitutional ED: Denies chills, fever(s) or sweats Eyes Eyes: Denies blurry vision or change in vision ENT ENT ED: Denies ear pain or sore throat Cardiovascular Cardiovascular: Denies chest pain, palpitations or racing heartbeat Respiratory/Chest Respiratory/Chest: Reports cough, dyspnea and dyspnea on exertion; Denies sputum Gastrointestinal Gastrointestinal: Denies abdominal pain, constipation, diarrhea, nausea or vomiting Genitourinary Genitourinary ED: Denies dysuria, hematuria or urinary frequency Musculoskeletal Musculoskeletal: Reports back pain; Denies arthralgias, myalgias or neck pain Integumentary Denies abscess, Abrasions or rash Neurologic Neurologic: Denies headache(s), paresthesias or weakness Psychiatric Psychiatric: Denies anxiety, depression, suicidal ideation or suicidal thoughts Endocrine Endocrinology: Denies polydipsia or polyuria EXAM Physical Exam Const Vital Signs: 05/06/24 11:52 05/06/24 11:52 05/06/24 12:20 Temperature 98 F Temperature Source Temporal Pulse Rate 74 75 Respiratory Rate 14 14 Respiratory Effort Normal Non-Labored Respiratory Depth Normal Respiratory Pattern Normal Blood Pressure 177/96 H 190/99 H Blood Pressure Mean 123 129 Pulse Ox 96 98 Oxygen Delivery Method Room Air Room Air Room Air 05/06/24 12:22 05/06/24 13:52 05/06/24 14:45 Temperature Temperature Source Pulse Rate 50 L 57 L Respiratory Rate 18 19 H Respiratory Effort Respiratory Depth Respiratory Pattern Blood Pressure 184/95 H 174/66 H Blood Pressure Mean 114 87 Pulse Ox 98 96 97 Oxygen Delivery Method Room Air 05/06/24 15:00 05/06/24 15:00 05/06/24 15:10 Temperature 97 F L Temperature Source Pulse Rate 61 43 L 59 L Respiratory Rate 11 L 18 Respiratory Effort Respiratory Depth Respiratory Pattern Blood Pressure 188/66 H 188/66 H 186/81 H Blood Pressure Mean 106 103 116 Pulse Ox 96 94 Oxygen Delivery Method Positive well nourished General Appearance ED: NAD; Negative for pallor HEENT Reports moist mucous membranes Eyes PERRL and EOMs intact bilaterally Resp normal respiratory effort and clear to auscultation bilaterally Cardio regular rate and regular rhythm GI non-tender and non-distended Back/Spine Back/Spine Narrative: Tenderness to palpation over L1. No midline deformity or step-off. No bruising. Extremity Extremity Narrative: 2+ lower extremity edema Neuro oriented x3 and CN's II-XII intact bilaterally Sensorium / Orientation: alert Motor Exam: general weakness Psych mental status grossly normal Skin General Skin Exam: Negative for jaundice or pallor MDM MDM MDM Narrative Medical decision making narrative: Patient presenting with dyspnea and back pain. Differential includes but is not limited to ACS, pneumonia, pneumothorax, muscle strain, A-fib, dehydration, anemia, electrolyte abnormalities, lumbar contusion, compression fracture. CBC will be obtained to assess white blood cell count, hemoglobin, platelets. BMP to assess renal function, electrolytes, glucose. High-sensitivity troponin and EKG to assess for ischemia/dysrhythmia. BNP to assess for CHF. Chest x-ray to rule out pneumonia or CHF. Will also obtain image of the lumbar spine due to pain. CBC shows normal white blood cell count of 7.9. Hemoglobin 13.3. Platelets are normal at 262. Renal function and electrolytes within normal limits. High-sensitivity troponin 16 and delta troponin is 17. BNP to 11.2. Chest x-ray interpreted by myself shows cardiomegaly but no evidence of acute CHF. X-ray of the lumbar spine interpreted by myself shows an very mild wedging of T 11 and an L1 compression fracture. Patient was given [place] for pain. Patient did ambulate without pulse ox and dropped only 90% on room air. I spoke with Dr. Kay regarding the patient and he recommended that I start him on Lasix 40 mg daily and initially we were going to give him carvedilol however his heart rate drops into the 50s and 60s at times. He had an echo which showed a normal EF 8/23. After discussing this with Dr. Kay who recommends 5 and amlodipine to help with his blood pressure as it is elevated today. Patient is to call the heart group to set up an outpatient appointment. Impression: 1. CHF 2. Hypertension 3. Compression fracture 4. Fall Lab Data Attestation: I reviewed the patient's lab results. Labs: Laboratory Results - last 24 hr 05/06/24 05/06/24 12:15 14:27 WBC 7.9 RBC 4.34 L Hgb 13.3 Hct 38.9 L MCV 89.6 MCH 30.6 MCHC 34.2 RDW Std Deviation 44.1 H RDW Coeff of Declan 13.5 Plt Count 262 MPV 8.5 Immature Gran % (Auto) 0.400 Neut % (Auto) 77.2 H Lymph % (Auto) 13.4 L Cooper % (Auto) 7.4 Eos % (Auto) 0.8 Baso % (Auto) 0.8 Absolute Neuts (auto) 6.1 Absolute Lymphs (auto) 1.05 Nucleated RBC % 0 Sodium 136 Potassium 4.2 Chloride 105 Carbon Dioxide 25.0 Anion Gap 6 BUN 16 Creatinine 0.94 Estim Creat Clear Calc 76.13 Est GFR (MDRD) Af Amer 99 Est GFR (MDRD) Non-Af 82 BUN/Creatinine Ratio 17.0 Glucose 110 H Calcium 9.1 Troponin I High Sens 16 17 B-Natriuretic Peptide 211.2 H Radiography Diagnostic Testing: Clinical Impression(s) from Imaging Studies Lumbar Spine X-Ray 05/06/24 12:06 IMPRESSION: Mild L1 compression fracture, age indeterminate. Advanced multilevel degenerative change. Mild scoliosis. Electronically Signed: Christie Lynn MD at 13:24 EDT , Chest X-Ray 05/06/24 12:42 IMPRESSION: No acute cardiopulmonary process identified. Electronically Signed: Christie Lynn MD at 13:25 EDT , Discharge Plan Triage Chief Complaint: Shortness of Breath ED Provider: Vernon Zhang Dx/Rx/DC Orders Instructions: ED CHF Left Side, ED Fracture, Vertebral Compression, ED High Blood Pressure Hypertension Prescriptions: New amlodipine 2.5 mg tablet 2.5 mg PO DAILY Qty: 30 0RF furosemide [Lasix] 40 mg tablet 40 mg PO QODAY Qty: 30 0RF hydrocodone-acetaminophen 5-325 mg tablet 1 tab PO Q6H 3 Days Qty: 12 0RF No Action lisinopril 40 mg tablet 40 mg PO DAILY Rx Instructions: Hold for systolic < or = to 100 or diastolic < or = 55. pravastatin 40 mg tablet 40 mg PO QHS Eliquis 2.5 mg tablet 2.5 mg PO BID ascorbic acid (vitamin C) 500 mg tablet 500 mg PO DAILY aspirin [Adult Aspirin Regimen] 81 mg tablet,delayed release (DR/EC) 81 mg PO DAILY Primary Care Provider: Juan Lay Referrals: Jef Higgins MD [Med Staff - Active Staff] - 3-5 Days Branden Velez MD [Med Staff - Active Staff] - 3-5 Days Juan Lay MD [Primary Care Provider] - Activity Restrictions/Additional Instructions: I wrote you prescriptions for amlodipine 2.5 mg that is only taken once a day. I also wrote you for Lasix 40 mg daily. You will need to take these medications today because you already received them in the ER. I wrote your prescription for [place] for your back pain. I gave you a follow-up with Dr. Higgins for the compression fractures. Dr. Kay wants you to follow-up with the heart group this week. Print Language: Niuean Disposition Disposition: Home, Self Care Discharge Date/Time: 05/06/24 16:32
[2024-05-06 12:22] LABS: Absolute Lymphocyte Count 1.05 X10^3/uL (0.83-4.51); Absolute Neutrophil Count 6.1 X10^3/uL (2.0-7.7); Basophil# 0.06 X10^3/uL; Basophil% 0.8 % (0-1); Eosinophil# 0.06 X10^3/uL; Eosinophils% 0.8 % (0-5); Hematocrit 38.9 % (40-54); Hemoglobin 13.3 g/dL (13.0-16.5); Lymphocyte # 1.05 X10^3/ul (0.83-4.51); Lymphocyte % 13.4 % (19-41); Mean Corp Hgb Conc 34.2 g/dL (32-36); Mean Corpuscular Hgb 30.6 pg (27.0-32.0); Mean Corpuscular Volume 89.6 fL (80-94); Mean Platelet Vol. 8.5 fl (6.2-12.0); Monocyte# 0.58 X10^3/uL; Monocyte% 7.4 % (0-10); NRBC Flagged by Analyzer 0 % (0-5); Neutrophil # 6.07 X10^3/uL (2.7-7.7); Neutrophil % 77.2 % (47-70); Platelet Count 262 K/mm3 (150-450); RBC Distribution Width CV 13.5 % (11.6-14.6); RBC Distribution Width SD 44.1 fl (35.1-43.9); Red Blood Count 4.34 M/mm3 (4.6-6.2); White Blood Count 7.9 K/mm3 (4.4-11.0)
[2024-05-06 12:42] LABS: Anion Gap 6 (5-15); BUN 16 mg/dL (7-18); Calcium,Total 9.1 mg/dL (8.5-10.1); Chloride 105 mmol/L (98-107); Creatinine, Serum 0.94 mg/dL (0.70-1.30); EST Glomerular Filtration Rate 82 mL/min (>60); Est Glom Filt Rate - Afr Amer 99 mL/min (>60); Estimated Creatinine Clearance 76.13 ml/min; Glucose 110 mg/dL (74-106); Potassium 4.2 mmol/L (3.5-5.1); Sodium Level 136 mmol/L (136-145); Troponin-I HS (w/2H Reflex) 16 pg/mL (3.0-78.0)
--- NOTE | 2024-05-06 12:42 | RAD_ITS ---
RAD/Chest 1 View (Portable) IMPRESSION: No acute cardiopulmonary process identified. Electronically Signed: Christie Lynn MD at 13:25 EDT ,
[2024-05-06 12:45] LABS: BNP,B-Type NATRIURETIC PEPTIDE 211.2 pg/mL (0-100)
[2024-05-06 14:20] LABS: Reflex Troponin-HS? (from REC) Y
[2024-05-06 14:52] LABS: Troponin-I HS 17 pg/mL (3.0-78.0)
[2024-05-06] MEDS: Furosemide 40 MG/4 ML Vial IV (15:01)
[2024-05-06] MEDS: Carvedilol 3.125 MG TABLET PO (15:01)
[2024-05-06] MEDS: HYDROcodone Bitartrate/Apap 5/325 Tablet PO (16:25)
== END 2024-05-06 16:32 | disposition home or self-care (01) ==
PROVIDERS: Emergency Provider Student in an Organized Health Care Education/Training Program; PCP Family Medicine; Visit Provider Student in an Organized Health Care Education/Training Program
DX: I11.0 Hypertensive heart disease with heart failure (principal); M48.56XA Collapsed vertebra, not elsewhere classified, lumbar region, initial encounter for fracture; I50.9 Heart failure, unspecified; I48.0 Paroxysmal atrial fibrillation; Z87.891 Personal history of nicotine dependence; E78.5 Hyperlipidemia, unspecified; I25.10 Atherosclerotic heart disease of native coronary artery without angina pectoris; R05.9 Cough, unspecified; R06.02 Shortness of breath; Z86.718 Personal history of other venous thrombosis and embolism; Z79.82 Long term (current) use of aspirin; W19.XXXA Unspecified fall, initial encounter
CPT/HCPCS: 71045; 72100; 80048; 83880; 84484; 85025; 93005; 96374; 99284; A4216; J1940

== ENCOUNTER 2024-05-09 12:14 | Emergency (ER) | payer MEDICARE, SELFPAY ==
[2024-05-09 12:14] VITALS: BP 119/87; PULSE 84; RESP 22; TEMP 36.2; O2SAT 95; BMI 28.3
[2024-05-09 12:16] VITALS: BP 119/91; PULSE 73; RESP 17; O2SAT 94
--- NOTE | 2024-05-09 12:20 | EKG12_ITS ---
Test Reason : SOB Blood Pressure : / mmHG Vent. Rate : 078 BPM Atrial Rate : 075 BPM P-R Int : 000 ms QRS Dur : 158 ms QT Int : 422 ms P-R-T Axes : 000 268 031 degrees QTc Int : 481 ms Atrial fibrillation Right bundle branch block Abnormal ECG Confirmed by MOLLY LARA, ANN ([id number]), assignment desk editor YOLY MANJARREZ ([id number]) on 05/16/2024 1:04:46 PM Referred By: Confirmed By:EDY BARNES MD
--- NOTE | 2024-05-09 12:23 | ED.VIS.DYS ---
HPI History of Present Illness Chief Complaint: Shortness of Breath [facility] Medical History Tachycardia-bradycardia Frequent PVCs Carotid stenosis Osteoarthritis Paroxysmal atrial fibrillation History of DVT (deep vein thrombosis) History of radiation therapy Essential hypertension Hyperlipidemia Iron deficiency anemia Home Medications ?Medication ?Instructions ?Recorded ?Last Taken ?Type lisinopril 40 mg tablet 40 mg PO DAILY 09/18/19 11/18/21 History pravastatin 40 mg tablet 40 mg PO QHS 09/18/19 Unknown History apixaban 2.5 mg tablet (Eliquis) 2.5 mg PO BID 05/28/22 Unknown History ascorbic acid (vitamin C) 500 mg 500 mg PO DAILY 05/28/22 Unknown History tablet aspirin 81 mg tablet,delayed 81 mg PO DAILY 07/16/23 Unknown History release (Adult Aspirin Regimen) multivit with min-folic 1 tab PO DAILY 11/10/23 Unknown History acid-lutein 400 mcg-250 mcg chewable tablet (Centrum Silver) amlodipine 2.5 mg tablet 2.5 mg PO DAILY #30 tabs 05/06/24 Unknown Rx furosemide 40 mg tablet (Lasix) 40 mg PO QODAY #30 tabs 05/06/24 Unknown Rx hydrocodone-acetaminophen 5-325mg 1 tab PO Q6H 3 days #12 TABLETS 05/06/24 Unknown Rx 5mg-325mg omeprazole 20 mg capsule,delayed 20 mg PO DAILY #30 CAPSULES 05/09/24 Unknown Rx release Allergy/AdvReac Type Severity Reaction Status Date / Time No Known Allergies Allergy Verified 05/06/24 11:53 Family History Father , Age 47 Myocardial infarction Heart disease Mother Heart disease Diabetes CVA (cerebral vascular accident) Brother Heart disease Diabetes Hypertension Sister Heart disease Surgical History History of left heart catheterization (LHC) (~11/18/21) History of open reduction and internal fixation (ORIF) procedure (08/24/19) History of arthroplasty of left knee Social History Smoking Status: Former smoker how long ago did patient quit smokin years ago alcohol intake: current alcohol intake frequency: a few times a month substance use type: does not use caffeine: Yes Type: coffee Number of servings: 3 EXAM Physical Exam Const Vital Signs: 05/09/24 12:14 05/09/24 12:16 05/09/24 12:25 Temperature 97.2 F L Temperature Source Temporal Pulse Rate 84 73 Respiratory Rate 22 H 17 Respiratory Effort Normal Respiratory Depth Normal Respiratory Pattern Normal Blood Pressure 119/87 H 119/91 H Blood Pressure Mean 97 100 Pulse Ox 95 94 Oxygen Delivery Method Room Air Room Air Room Air 05/09/24 12:43 05/09/24 13:16 05/09/24 13:57 Temperature Temperature Source Pulse Rate 73 62 Respiratory Rate 16 16 Respiratory Effort Respiratory Depth Respiratory Pattern Blood Pressure 120/84 H 109/71 Blood Pressure Mean 96 83 Pulse Ox 95 95 Oxygen Delivery Method Room Air Room Air Room Air 05/09/24 14:47 Temperature 97.9 F Temperature Source Pulse Rate 67 Respiratory Rate 18 Respiratory Effort Respiratory Depth Respiratory Pattern Blood Pressure 161/90 H Blood Pressure Mean 113 Pulse Ox 98 Oxygen Delivery Method MDM MDM MDM Narrative Medical decision making narrative: HISTORY OF PRESENT ILLNESS: 84-year-old male presents with shortness of breath. Notes worse for the last week. Denies cough fever chills. Denies bleeding diathesis. Denies chest pain. Denies lower extreme edema, orthopnea or paroxysmal nocturnal dyspnea. The patient denies recent surgery in the last 4 weeks or immobilization in the last 3 days, denies previous diagnosis of DVT or PE, hemoptysis, unilateral leg swelling or malignancy with treatment the last 6 months or palliative. No estrogen use noted. REVIEW OF SYSTEMS: Pertinent positives: Shortness of breath Pertinent negatives: As per HPI PHYSICAL EXAM: Nursing triage notes reviewed, Vital signs reviewed Constitutional: please see mdm HENT: MMM Eyes: Pupils equal round and reactive to light, Extraocular muscles intact Neck: No stridor, no JVD, full neck ROM Lungs: Clear to auscultation, No wheezing or rales. No increased work of breathing, no conversational dyspnea, no accessory muscle use, no nasal flaring. No respiratory distress noted Heart: Regular rate and rhythm, No murmurs, No rubs and No gallops, 2+ distal pulses (radial, femoral, posterior tibial) in all extremities Abdomen: Soft, there is no tenderness, rigidity, rebound or guarding, no obvious peritoneal signs, no palpable pulsatile abdominal masses, no auscultated abdominal bruit : No CVAT Extremities: No edema Neuro: No focal neurological deficits, cranial nerves II through XII intact, 5/5 strength in all extremities. Intact sensation to light touch in all extremities, 2+ reflexes bilateral patella tendons. Normal gait. No ataxia. Skin: No rash or lesions noted MEDICAL DECISION MAKING: Chief Complaint: Shortness of breath External records reviewed: Reviewed prior ED visit from April 2024 for compression. Imaging reviewed: Reviewed prior x-ray lumbar spine from 05/06/2024 shows a mild L1 compression fracture Factors affecting care: CAD, history of heart conization, history of frequent PVCs, NSVT, paroxysmal A-fib, DVT open disease on Eliquis), hyperlipidemia, hypertension Social determinants of health: Elderly History obtained from others: The patient's family Consults: none MDM Narrative: Patient was initially hemodynamically stable, afebrile, nontoxic-appearing. Documented respiratory rate was 22 consistent with the patient being mildly tachypneic. I considered the following differential diagnosis: Pneumonia, COVID, COPD, anemia, arrhythmia, ACS, PE, pneumothorax I obtained a broad lab and imaging workup to further elucidate etiology the patient complaint. ALL IMAGES (IF OBTAINED) HAVE BEEN PERSONALLY REVIEWED AND INTERPRETED BY MYSELF. COVID flu RSV negative High-sensitivity troponin is negative, no evidence of myocardial ischemia BNP only marginally elevated consistent with potential ventricular stretch or increased transient wall pressure however patient has no signs of volume overload and x-ray is not consistent with CHF exacerbation I have personally reviewed the patient's chest x-ray. Chest x-ray is unremarkable for pulmonary edema, pneumothorax, pneumonia or focal cardiopulmonary abnormality. I have personally reviewed the patient's chest x-ray. Chest x-ray is unremarkable for pulmonary edema, pneumothorax, pneumonia or focal cardiopulmonary abnormality. Patient was ambulated in the emergency department without exertional hypoxia. At this time there is no obvious life-limiting etiology can be identified. Specifically is no signs of pneumothorax, ACS, arrhythmia, anemia, COVID, pneumonia. In terms of pulm embolism I considered this etiology however the patient had a low risk Wells score was not hypoxic had no tachycardia to suggest PE in addition to this he was compliant with home Eliquis which makes VTE much less likely. Given the patient can ambulate without significant hypoxia had no obvious findings or clinical or physical exam findings that would suggest a life-threatening etiology is appropriate for discharge home The patient and/or family, caregivers express understanding. The patient and/or family, caregivers agrees with the plan. Shared decision making: I will have a discussion with the patient and or visitors regarding risk/benefits of further testing or admission. They will be made aware of of the risk/benefits inherent in this decision they will be given the opportunity to voice understanding. Total critical care time today provided was at least 0 [] minutes. This excludes separately billable procedures. Critical care time (if documented) is secondary to the patient having high probability of clinically significant/life threatening deterioration in the patient's condition which required my urgent intervention. Impression: 1. Dyspnea 2. History of DVT Dispo: Discharge home This note was generated with Swing[employer] dictation software. It may contain incorrect words, spelling, and punctuation that were not noted in review of the chart prior to signing. Lab Data Labs: Laboratory Results - last 24 hr 05/09/24 12:30 WBC 8.2 RBC 4.53 L Hgb 13.9 Hct 40.7 MCV 89.8 MCH 30.7 MCHC 34.2 RDW Std Deviation 45.1 H RDW Coeff of Declan 13.6 Plt Count 297 MPV 8.6 Immature Gran % (Auto) 0.400 Neut % (Auto) 72.4 H Lymph % (Auto) 16.2 L Cata[place] % (Auto) 8.2 Eos % (Auto) 2.1 Baso % (Auto) 0.7 Absolute Neuts (auto) 5.9 Absolute Lymphs (auto) 1.33 Nucleated RBC % 0 Sodium 136 Potassium 4.4 Chloride 102 Carbon Dioxide 25.0 Anion Gap 9 BUN 23 H Creatinine 0.94 Estim Creat Clear Calc 75.28 Est GFR (MDRD) Af Amer 99 Est GFR (MDRD) Non-Af 82 BUN/Creatinine Ratio 24.5 H Glucose 100 Calcium 9.6 Troponin I High Sens 15 B-Natriuretic Peptide 104.4 H Radiography Diagnostic Testing: Clinical Impression(s) from Imaging Studies Chest X-Ray 05/09/24 12:53 IMPRESSION: No radiographic evidence of acute cardiopulmonary disease. Electronically Signed: Yonis Guillen MD at 13:36 EDT , Discharge Plan Triage Chief Complaint: Shortness of Breath ED Provider: Rubio Augustin Dx/Rx/DC Orders Clinical Impression: Acute dyspnea Instructions: ED Dyspnea Prescriptions: New omeprazole 20 mg capsule,delayed release(DR/EC) 20 mg PO DAILY Qty: 30 0RF No Action lisinopril 40 mg tablet 40 mg PO DAILY Rx Instructions: Hold for systolic < or = to 100 or diastolic < or = 55. pravastatin 40 mg tablet 40 mg PO QHS Eliquis 2.5 mg tablet 2.5 mg PO BID ascorbic acid (vitamin C) 500 mg tablet 500 mg PO DAILY amlodipine 2.5 mg tablet 2.5 mg PO DAILY Qty: 30 0RF furosemide [Lasix] 40 mg tablet 40 mg PO QODAY Qty: 30 0RF hydrocodone-acetaminophen 5-325 mg tablet 1 tab PO Q6H 3 Days Qty: 12 0RF aspirin [Adult Aspirin Regimen] 81 mg tablet,delayed release (DR/EC) 81 mg PO DAILY Primary Care Provider: Juan Lay Referrals: Juan Lay MD [Primary Care Provider] - Activity Restrictions/Additional Instructions: Thank you for trusting us with your care today! Please take Tylenol (2 pills, 650 mg), ibuprofen (2 pills, 400 mg) every 6 hours as needed for pain and fever control. Please return to the emergency department if your symptoms change or worsen. Please follow with your primary care physician for further outpatient evaluation and management. Print Language: French Disposition Disposition: Home, Self Care
[2024-05-09 12:25] VITALS: O2SAT 94
[2024-05-09 12:52] LABS: Absolute Lymphocyte Count 1.33 X10^3/uL (0.83-4.51); Absolute Neutrophil Count 5.9 X10^3/uL (2.0-7.7); Basophil# 0.06 X10^3/uL; Basophil% 0.7 % (0-1); Eosinophil# 0.17 X10^3/uL; Eosinophils% 2.1 % (0-5); Hematocrit 40.7 % (40-54); Hemoglobin 13.9 g/dL (13.0-16.5); Lymphocyte # 1.33 X10^3/ul (0.83-4.51); Lymphocyte % 16.2 % (19-41); Mean Corp Hgb Conc 34.2 g/dL (32-36); Mean Corpuscular Hgb 30.7 pg (27.0-32.0); Mean Corpuscular Volume 89.8 fL (80-94); Mean Platelet Vol. 8.6 fl (6.2-12.0); Monocyte# 0.67 X10^3/uL; Monocyte% 8.2 % (0-10); NRBC Flagged by Analyzer 0 % (0-5); Neutrophil # 5.93 X10^3/uL (2.7-7.7); Neutrophil % 72.4 % (47-70); Platelet Count 297 K/mm3 (150-450); RBC Distribution Width CV 13.6 % (11.6-14.6); RBC Distribution Width SD 45.1 fl (35.1-43.9); Red Blood Count 4.53 M/mm3 (4.6-6.2); White Blood Count 8.2 K/mm3 (4.4-11.0)
--- NOTE | 2024-05-09 12:53 | RAD_ITS ---
INDICATION: Shortness of breath EXAMINATION/TECHNIQUE: X-RAY - XR Chest 1 View COMPARISON: Prior study dated: 05/06/2024 FINDINGS: LINES/DEVICES: None. LUNGS: No consolidation, edema or effusion. No pneumothorax. Mild elevation of the left hemidiaphragm. MEDIASTINUM AND CARDIOVASCULAR STRUCTURES: Stable cardiomediastinal silhouette. BONES AND SOFT TISSUES: Unremarkable. RAD/Chest 1 View (Portable) IMPRESSION: No radiographic evidence of acute cardiopulmonary disease. Electronically Signed: Yonis Guillen MD at 13:36 EDT ,
[2024-05-09 13:12] LABS: BNP,B-Type NATRIURETIC PEPTIDE 104.4 pg/mL (0-100)
[2024-05-09 13:14] LABS: Anion Gap 9 (5-15); BUN 23 mg/dL (7-18); BUN/Creat Ratio 24.5 RATIO (10-20); Calcium,Total 9.6 mg/dL (8.5-10.1); Chloride 102 mmol/L (98-107); Creatinine, Serum 0.94 mg/dL (0.70-1.30); EST Glomerular Filtration Rate 82 mL/min (>60); Est Glom Filt Rate - Afr Amer 99 mL/min (>60); Estimated Creatinine Clearance 75.28 ml/min; Glucose 100 mg/dL (74-106); Potassium 4.4 mmol/L (3.5-5.1); Sodium Level 136 mmol/L (136-145); Troponin-I HS 15 pg/mL (3.0-78.0)
[2024-05-09 13:16] VITALS: BP 120/84; PULSE 73; RESP 16; O2SAT 95
[2024-05-09 13:57] VITALS: BP 109/71; PULSE 62; RESP 16; O2SAT 94; O2SAT 95
[2024-05-09] MEDS: Calcium Carbonate 500 MG Tablet 1000 MG PO (14:46)
[2024-05-09 14:47] VITALS: BP 161/90; PULSE 67; RESP 18; TEMP 36.6; O2SAT 98
== END 2024-05-09 15:07 | disposition home or self-care (01) ==
PROVIDERS: Emergency Provider Emergency Medicine; PCP Family Medicine; Visit Provider Emergency Medicine
DX: R06.09 Other forms of dyspnea (principal); I48.0 Paroxysmal atrial fibrillation; I10 Essential (primary) hypertension; Z87.891 Personal history of nicotine dependence; E78.5 Hyperlipidemia, unspecified; Z86.718 Personal history of other venous thrombosis and embolism; I25.10 Atherosclerotic heart disease of native coronary artery without angina pectoris; Z79.82 Long term (current) use of aspirin; D50.9 Iron deficiency anemia, unspecified; Z79.01 Long term (current) use of anticoagulants
CPT/HCPCS: 71045; 80048; 83880; 84484; 85025; 87631; 93005; 99284; A4216

== ENCOUNTER → 2024-06-26 | Outpatient (CLI) | payer MEDICARE, SELFPAY ==
--- NOTE | 2024-06-26 11:03 | CDU_ITS ---
Reason For Study: Carotid stenosis Rt. Velocities/BP Lt. Velocities/BP Prox CCA 25.3/4.2 cm/sec. Prox CCA 68.3/19.5 cm/sec. Mid CCA 35.9/5.2 cm/sec. Mid CCA 72.7/16 cm/sec. Dist CCA 26.3/6.7 cm/sec. Dist CCA 50.7/20.9 cm/sec. ICA, Known Occlusion. Prox ICA 81.7/33.3 cm/sec. Prox ECA 100.3/12.4 cm/sec. Mid ICA 89.4/26.7 cm/sec. Rt. Vert. 32.5/13.3 cm/sec. Dist ICA 87.2/25.6 cm/sec. Lt. ICA/CCA = 1.23. Prox ECA 85/9.1 cm/sec. Lt. Vert. 23.8/3.8 cm/sec. Right Extracranial There is heterogeneous, irregular atherosclerotic plaque noted in the right common carotid artery. There is heterogeneous, irregular atherosclerotic plaque noted in the right internal carotid artery. The right internal carotid artery is occluded. There is heterogeneous, irregular atherosclerotic plaque noted in the right external carotid artery. Antegrade flow is noted in the right vertebral artery. Left Extracranial There is heterogeneous, irregular atherosclerotic plaque noted in the left common carotid artery. There is heterogeneous, irregular atherosclerotic plaque noted in the left internal carotid artery. There is heterogeneous, irregular atherosclerotic plaque noted in the left external carotid artery. Antegrade flow is noted in the left vertebral artery. Procedure Carotid Duplex [id number]. This is a Carotid Duplex examination using B-mode, color flow and specral Doppler. Exam performed in department. 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 Mild (<50%) stenosis left extracranial internal carotid. Patent and antegrade vertebrals bilaterally. Ordering Physician: Yisel Jarvis Referring Physician: Juan Lay Performed By: Jing Bell, RVT
== END | disposition home or self-care (01) ==
PROVIDERS: PCP Family Medicine; Referring Provider Physician Assistant; Visit Provider Physician Assistant
DX: I65.23 Occlusion and stenosis of bilateral carotid arteries (principal)
CPT/HCPCS: 93880

== ENCOUNTER → 2025-01-04 | Outpatient (CLI) | payer MEDICARE, SELFPAY ==
--- NOTE | 2025-01-04 10:45 | CDU_ITS ---
Reason For Study Reason For Study: R ICA Occlusion, L ICA Stenosis Rt. Velocities/BP Lt. Velocities/BP Prox CCA 40.1/3.8 cm/sec. Prox CCA 73.2/22.8 cm/sec. Mid CCA 36.5/6.6 cm/sec. Mid CCA 86.7/16.7 cm/sec. Dist CCA 28.4/7.2 cm/sec. Dist CCA 65.8/22.8 cm/sec. ICA, Known Occlusion. Prox ICA 68.3/24.1 cm/sec. Prox ECA 96.0/10.2 cm/sec. Mid ICA 57.2/16.7 cm/sec. Rt. Vert. 28.1/9.5 cm/sec. Dist ICA 90.4/25.3 cm/sec. Lt. ICA/CCA = 1.0. Prox ECA 76.9/6.9 cm/sec. Lt. Vert. 28.9/0.0 cm/sec. Right Extracranial There is heterogeneous, irregular atherosclerotic plaque noted in the right common carotid artery. There is heterogeneous, irregular atherosclerotic plaque noted in the right internal carotid artery. The right internal carotid artery is occluded. There is heterogeneous, irregular atherosclerotic plaque noted in the right external carotid artery. Antegrade flow is noted in the right vertebral artery. Left Extracranial There is heterogeneous, irregular atherosclerotic plaque noted in the left common carotid artery. There is heterogeneous, irregular atherosclerotic plaque noted in the left internal carotid artery. There is heterogeneous, irregular atherosclerotic plaque noted in the left external carotid artery. Antegrade flow is noted in the left vertebral artery. Procedure Carotid Duplex 92736. This is a Carotid Duplex examination using B-mode, color flow and specral Doppler. Exam performed in department. 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 Mild (<50%) stenosis left extracranial internal carotid. Patent and antegrade vertebrals bilaterally. Ordering Physician: Yisel Jarvis Referring Physician: Juan Lay Performed By: Ladonna Felton RVT
== END | disposition home or self-care (01) ==
PROVIDERS: PCP Family Medicine; Referring Provider Physician Assistant; Visit Provider Physician Assistant
DX: I65.23 Occlusion and stenosis of bilateral carotid arteries (principal)
CPT/HCPCS: 93880

== ENCOUNTER 2025-02-08 09:37 | Observation (INO) | payer MEDICARE, SELFPAY ==
[2025-02-08] VITALS (11 sets, daily range): BP systolic 134–177; BP diastolic 58–105; PULSE 52–81; RESP 16–22; TEMP 36.2–36.6; O2SAT 91–100; BMI 29.3; BMI 28.4
--- NOTE | 2025-02-08 09:47 | EDS_ITS ---
HPI History of Present Illness Chief Complaint: Shortness of Breath Narrative Narrative: 85-year-old male past medical history of atrial fibrillation on Eliquis, coronary artery disease, takes Lasix intermittently, presents with increasing shortness of breath and chest pressure/heaviness since this morning at around 4 AM, approximately 5-1/2 hours ago. He relates history that he has been dealing with congestion in his chest. He has occasional dyspnea on exertion, and orthopnea. He states that this morning, after he had been asleep he got up at 4:00 and felt like he needed to sit upright in his chair like he usually does. He denies any fevers or chills, very rare cough. He took Mucinex today because he felt like his chest was congested and that he could not cough up any sputum. While he has chronic leg swelling, it was worse approximately a year ago. He presents with heaviness in his chest but mainly shortness of breath that is worsened today. [facility] Medical History Nonrheumatic aortic (valve) insufficiency Tachycardia-bradycardia Frequent PVCs Carotid stenosis Osteoarthritis Paroxysmal atrial fibrillation History of DVT (deep vein thrombosis) History of radiation therapy Essential hypertension Hyperlipidemia Iron deficiency anemia Home Medications ?Medication ?Instructions ?Recorded ?Last Taken ?Type lisinopril 40 mg tablet 40 mg PO DAILY 09/18/190 06/01 History pravastatin 40 mg tablet 40 mg PO QHS 09/18/19 Unknow n History apixaban 2.5 mg tablet (Eliquis) 2.5 mg PO BID 2 Unknown History ascorbic acid (vitamin C) 500 mg 500 mg PO DAILY 05/28 Unknown History tablet aspirin 81 mg tablet,delayed 81 mg PO DAILY 07/16/23 U nknown History release (Adult Aspirin Regimen) vfeposkpvbhk-fbbvlma-rqssx acid 1 tab PO DAILY 4 Unknown History 400 mcg-lutein 250 mcg chewable tablet (Centrum Silver) Cardio ute PO 05/12/24 Unknown History GSH 3 PO 05/12/24 Unknown History Relief Factor PO 05/12/24 Unknown History menthol 0.44 %-zinc oxide 20.6 % 1 applic topical 4-6X D PRN wound 05/12/24 Unknown History topical ointment (Calmoseptine) healing furosemide 40 mg tablet (Lasix) 40 mg PO QAM PRN edema 01/24/25 Unknown History Allergy/AdvReac Type Severity Reaction Status Date / Time No Known Allergies Allergy Verified 02/08/25 09:38 Family History Father , Age 47 Myocardial infarction Heart disease Mother Heart disease Diabetes CVA (cerebral vascular accident) Brother Heart disease Diabetes Hypertension Sister Heart disease Surgical History History of cholecystectomy (~12/2023) History of left heart catheterization (LHC) (~11/18/21) History of open reduction and internal fixation (ORIF) procedure (08/24/19) History of arthroplasty of left knee Social History Smoking Status: Former smoker how long ago did patient quit smokin years ago alcohol intake: current alcohol intake frequency: a few times a month substance use type: does not use caffeine: Yes Type: coffee Number of servings: 3 ROS ROS ED ROS Narrative Constitutional: No fever, no chills. HEENT: No sore throat. No neck pain. No rhinorrhea. Cardiovascular: Positive chest heaviness/chest pain. No palpitations. Chronic pedal edema. Respiratory: Occasional cough, positive orthopnea and shortness of breath. Abdominal: No abdominal pain. No nausea. No vomiting. Genitourinary: No dysuria. No hematuria. Musculoskeletal: No myalgias. No arthralgias. Neurologic: No headaches. No dizziness. No lightheadedness. EXAM Physical Exam Narrative Exam Narrative: Afebrile. Vital signs noted. HEENT: Normocephalic. Atraumatic. PERRL, EOMI. Neck soft and supple. Cardiovascular: Regular rate and rhythm. Holosystolic murmur. No rubs, or gallops appreciated. Respiratory: No tachypnea. Lungs clear to auscultation bilaterally. Gastrointestinal: Abdomen soft, nontender, with normoactive bowel sounds. No rebound or guarding. Neurological: Awake. Alert. Nonfocal, nonlateralizing. Skin: No rash. Normal color. No pallor. Musculoskeletal: Trace bilateral symmetric pedal edema. Full range of motion extremities. Const Vital Signs: 02/08/25 09:38 02/08/25 09:38 02/08/25 09:43 Temperature 97.8 F Temperature Source Temporal Pulse Rate 67 65 Respiratory Rate 22 H 19 H Respiratory Effort Non-Labored Respiratory Depth Normal Respiratory Pattern Normal Blood Pressure 140/74 H 140/74 H Blood Pressure Mean 96 96 Pulse Ox 94 97 Oxygen Delivery Method Room Air Room Air 02/08/25 10:02 02/08/25 10:02 02/08/25 11:04 Temperature 97.4 F L Temperature Source Temporal Pulse Rate 61 56 L Respiratory Rate 19 H 21 H Respiratory Effort Respiratory Depth Respiratory Pattern Blood Pressure 140/74 H 150/58 H Blood Pressure Mean 96 88 Pulse Ox 100 97 Oxygen Delivery Method Room Air Room Air 02/08/25 11:04 02/08/25 12:11 02/08/25 13:00 Temperature 97.1 F L Temperature Source Temporal Pulse Rate 56 L 81 72 Respiratory Rate 21 H 19 H 19 H Respiratory Effort Respiratory Depth Respiratory Pattern Blood Pressure 150/58 H 168/62 H 151/105 H Blood Pressure Mean 88 97 116 Pulse Ox 97 94 99 Oxygen Delivery Method Room Air MDM MDM MDM Narrative Medical decision making narrative: The differential diagnosis includes but not limited to ACS versus pneumonia versus pneumothorax versus CHF exacerbation. Patient states that he is concerned about a pneumonia with chest congestion that he is having. Comprehensive workup was pursued. EKG was obtained and interpreted by myself independently as rate controlled atrial fibrillation at 66 bpm with PVCs. When compared to previous EKG, no significant change from 2023. I reviewed his laboratory work and he has normal white count of 7.6 with hemoglobin stable at 12.3, hematocrit 36.0, platelet count normal at 307. BUN is 20 with creatinine normal at 0.88, glucose 92, initial high-sensitivity troponin 30 with repeat at 2 hours being 28. BNP 653 which I think is slightly elevated but not a cause for his chest heaviness and shortness of breath. Chest x-ray interpreted by myself independently shows on my independent interpretation cardiomegaly but no discrete pneumonia, no pneumothorax. No overt CHF as well. I reviewed the radiology report which confirms my independent interpretation. I reviewed his prior outpatient record as well as inpatient and he last had heart catheterization in 2021. He was to be medical treatment. He has slightly elevated troponin but they appear stable. However, his daughter was concerned because when she saw him this morning, he did not look like he was feeling well. I do feel that he merits at least observation for chest pain rule out. I discussed patient with Dr. Ruiz. He will be assigned to observation in the PCU. Patient is in stable condition. History & Record Review Discussion w/independent historian: Patient and Family Lab Data Attestation: I reviewed the patient's lab results. Labs: Laboratory Results - last 24 hr 02/08/25 02/08/25 09:50 12:09 WBC 7.6 RBC 3.98 L Hgb 12.3 L Hct 36.0 L MCV 90.5 MCH 30.9 MCHC 34.2 RDW Std Deviation 42.0 RDW Coeff of Declan 12.7 Plt Count 307 MPV 8.6 Immature Gran % (Auto) 0.300 Neut % (Auto) 71.3 H Lymph % (Auto) 16.4 L [place] % (Auto) 9.1 Eos % (Auto) 2.1 Baso % (Auto) 0.8 Absolute Neuts (auto) 5.4 Absolute Lymphs (auto) 1.25 Nucleated RBC % 0 Sodium 136 Potassium 4.5 Chloride 102 Carbon Dioxide 22.6 Anion Gap 11 BUN 20 H Creatinine 0.88 Estim Creat Clear Calc 80.22 Est GFR (MDRD) Non-Af 85 BUN/Creatinine Ratio 22.6 H Glucose 92 Calcium 9.1 Troponin T High Sens 30 H Troponin T Hi Sens 2 Hr 28 H NT pro BNP II 653 Radiography Diagnostic Testing: Clinical Impression(s) from Imaging Studies Chest X-Ray 02/08/25 10:10 IMPRESSION: There is moderate cardiomegaly without overt CHF, unchanged. There is no acute infiltrate or consolidation. Reading Location: [facility] Discharge Plan Dx/Rx/DC Orders Clinical Impression: Chest pain, CAD (coronary artery disease), SOB (shortness of breath), Elevated troponin Disposition Disposition: [facility]
--- NOTE | 2025-02-08 09:48 | EKG12_ITS ---
Test Reason : SOB Blood Pressure : */* mmHG Vent. Rate : 66 BPM Atrial Rate : * BPM P-R Int : * ms QRS Dur : 156 ms QT Int : 464 ms P-R-T Axes : * -89 18 degrees QTcB Int : 486 ms Atrial fibrillation with premature ventricular or aberrantly conducted complexes Left axis deviation Right bundle branch block Abnormal ECG Confirmed by JERALD LARA, GERARDO ([id number]), video effects editor RUPAL BUTLER ([id number]) on 02/09/2025 8:16:30 AM Referred By: ANGELES/DANN Confirmed By: GERARDO MARQUES MD
[2025-02-08 09:59] LABS: Absolute Lymphocyte Count 1.25 X10^3/uL (0.83-4.51); Absolute Neutrophil Count 5.4 X10^3/uL (2.0-7.7); Basophil# 0.06 X10^3/uL; Basophil% 0.8 % (0-1); Eosinophil# 0.16 X10^3/uL; Eosinophils% 2.1 % (0-5); Hemoglobin 12.3 g/dL (13.0-16.5); Lymphocyte # 1.25 X10^3/ul (0.83-4.51); Lymphocyte % 16.4 % (19-41); Mean Corp Hgb Conc 34.2 g/dL (32-36); Mean Corpuscular Hgb 30.9 pg (27.0-32.0); Mean Corpuscular Volume 90.5 fL (80-94); Mean Platelet Vol. 8.6 fl (6.2-12.0); Monocyte# 0.69 X10^3/uL; Monocyte% 9.1 % (0-10); NRBC Flagged by Analyzer 0 % (0-5); Neutrophil # 5.43 X10^3/uL (2.7-7.7); Neutrophil % 71.3 % (47-70); Platelet Count 307 K/mm3 (150-450); RBC Distribution Width CV 12.7 % (11.6-14.6); Red Blood Count 3.98 M/mm3 (4.6-6.2); White Blood Count 7.6 K/mm3 (4.4-11.0)
--- NOTE | 2025-02-08 10:10 | RAD_ITS ---
PROCEDURE: CHEST PA AND LATERAL 02/08/2025 REASON FOR EXAM: SHORTNESS OF BREATH TECHNIQUE: Frontal and lateral views of the chest. COMPARISON: May 09, 2024 FINDINGS: There is moderate cardiomegaly without overt CHF, unchanged. There is no acute infiltrate or consolidation. There is no pneumothorax or effusion. Old left-sided rib fractures are noted. A lower thoracic compression deformity is unchanged, with kyphosis. Atherosclerotic calcifications are visible. RAD/Chest PA and Lateral IMPRESSION: There is moderate cardiomegaly without overt CHF, unchanged. There is no acute infiltrate or consolidation. Reading Location: [facility]
[2025-02-08 10:25] LABS: Anion Gap 11 (5-15); BUN 20 mg/dL (4-19); BUN/Creat Ratio 22.6 RATIO (10-20); Calcium,Total 9.1 mg/dL (7.6-11.0); Carbon Dioxide 22.6 mmol/L (21.0-32.0); Chloride 102 mmol/L (98-108); Creatinine, Serum 0.88 mg/dL (0.70-1.20); EST Glomerular Filtration Rate 85 (>60); Estimated Creatinine Clearance 80.22 ml/min (50-250); Glucose 92 mg/dL (70-99); Potassium 4.5 mmol/L (3.3-5.1); Pro- Brain NATRIURETIC PEPTIDE 653 pg/mL (<=1800); Sodium Level 136 mmol/L (133-145); Troponin T High Sensitivity 30 ng/L (<=22)
[2025-02-08 12:32] LABS: Troponin T High Sens 2 HR 28 ng/L (<=22)
--- NOTE | 2025-02-08 13:58 | PCM.HP.STD ---
HPI - General General Date of Admission: 02/08/25 HPI Talya GARRIDO, is a 85 M who presents to the hospital for 1 day of chest pressure and shortness of breath today. He denies any acute chest pain but felt that he was difficult to get a deep breath and he felt that he just had significant pressure. He has not been having this issue prior to today and it currently is improved and almost resolved. He was concerned that he had pneumonia but he is afebrile without a leukocytosis and he saturating 99% on room air. Chest x-ray in the ER was unremarkable with no consolidation, and the patient does not have any sick contacts at home. He did have a heart cath in 2021 which demonstrated mild coronary artery disease and they recommended at that time medical management. Initial troponin was 30 and it went down to 28, at the moment these are insignificant and his proBNP was normal at 653. [facility] Medical History Nonrheumatic aortic (valve) insufficiency Tachycardia-bradycardia Frequent PVCs Carotid stenosis Osteoarthritis Paroxysmal atrial fibrillation History of DVT (deep vein thrombosis) History of radiation therapy Essential hypertension Hyperlipidemia Iron deficiency anemia Home Medications ?Medication ?Instructions ?Recorded ?Last Taken ?Type lisinopril 40 mg tablet 40 mg PO DAILY 09/18/19 11/18/21 History pravastatin 40 mg tablet 40 mg PO QHS 09/18/19 Unknown History apixaban 2.5 mg tablet (Eliquis) 2.5 mg PO BID 05/28/22 Unknown History ascorbic acid (vitamin C) 500 mg 500 mg PO DAILY 05/28/22 Unknown History tablet aspirin 81 mg tablet,delayed 81 mg PO DAILY 07/16/23 Unknown History release (Adult Aspirin Regimen) xzyjjgubxkwc-wazevrv-hoeee acid 1 tab PO DAILY 11/10/23 Unknown History 400 mcg-lutein 250 mcg chewable tablet (Centrum Silver) Cardio [place] PO 05/12/24 Unknown History GSH 3 PO 05/12/24 Unknown History Relief Factor PO 05/12/24 Unknown History menthol 0.44 %-zinc oxide 20.6 % 1 applic topical 4-6XD PRN wound 05/12/24 Unknown History topical ointment (Calmoseptine) healing furosemide 40 mg tablet (Lasix) 40 mg PO QAM PRN edema 01/24/25 Unknown History Allergy/AdvReac Type Severity Reaction Status Date / Time No Known Allergies Allergy Verified 02/08/25 09:38 Family History Father , Age 47 Myocardial infarction Heart disease Mother Heart disease Diabetes CVA (cerebral vascular accident) Brother Heart disease Diabetes Hypertension Sister Heart disease Surgical History History of cholecystectomy (~12/2023) History of left heart catheterization (LHC) (~11/18/21) History of open reduction and internal fixation (ORIF) procedure (08/24/19) History of arthroplasty of left knee Social History Smoking Status: Former smoker how long ago did patient quit smokin years ago alcohol intake: current alcohol intake frequency: a few times a month substance use type: does not use caffeine: Yes Type: coffee Number of servings: 3 ROS Constitutional Constitutional: Denies chills, fatigue, fever(s) or malaise Eyes Eyes: Denies blurry vision ENT HEENT: Denies headache(s) or nasal discharge Cardiovascular Cardiovascular: Reports chest pain; Denies dyspnea on exertion or syncope Respiratory/Chest Respiratory/Chest: Reports shortness of breath at rest and shortness of breath with exertion; Denies cough Gastrointestinal Gastrointestinal: Denies constipation, diarrhea, nausea or vomiting Genitourinary Genitourinary: Denies dysuria Neurologic Neurologic: Denies focal weakness, numbness or tremor(s) Psychiatric Psychiatric: Denies anxiety or depression Vital Signs Vital Signs Vital Signs: 02/08/25 09:38 02/08/25 09:38 02/08/25 09:43 Temperature 97.8 F Temperature Source Temporal Pulse Rate 67 65 Respiratory Rate 22 H 19 H Respiratory Effort Non-Labored Respiratory Depth Normal Respiratory Pattern Normal Blood Pressure 140/74 H 140/74 H Blood Pressure Mean 96 96 Pulse Ox 94 97 Oxygen Delivery Method Room Air Room Air 02/08/25 10:02 02/08/25 10:02 02/08/25 11:04 Temperature 97.4 F L Temperature Source Temporal Pulse Rate 61 56 L Respiratory Rate 19 H 21 H Respiratory Effort Respiratory Depth Respiratory Pattern Blood Pressure 140/74 H 150/58 H Blood Pressure Mean 96 88 Pulse Ox 100 97 Oxygen Delivery Method Room Air Room Air 02/08/25 11:04 02/08/25 12:11 02/08/25 13:00 Temperature 97.1 F L Temperature Source Temporal Pulse Rate 56 L 81 72 Respiratory Rate 21 H 19 H 19 H Respiratory Effort Respiratory Depth Respiratory Pattern Blood Pressure 150/58 H 168/62 H 151/105 H Blood Pressure Mean 88 97 116 Pulse Ox 97 94 99 Oxygen Delivery Method Room Air Weight Weight: 228 lb 6.382 oz Body Mass Index (BMI) 29.3 Physical Exam Narrative General: Alert, Oriented x3, Cooperative, No apparent distress HEENT: Atraumatic, PERRLA, EOMI, Normocephalic Oral: Moist Mucosa Neck: Supple, No JVD Lungs: Diminished, Normal air movement, No rhonchi, No wheeze, No rales Cardiovascular: Regular rate, Regular Rhythm, Normal S1, Normal S2, [place] Abdomen: Soft, Non Tender, Non-Distended, No Hepato-splenomegaly Extremities: No edema, Capillary Refill Less than 3 Seconds Skin: No rashes, No breakdown Musculoskeletal: No Tenderness to Palpation of Joints or Extremities Neurological: No focal neurological deficits, Motor Exam 5/5 strength throughout, Sensory exam intact to light touch and pain Psych/Mental Status: Normal Affect, Appropriate Results Lab / Micro Data 02/08/25 09:50 02/08/25 09:50 Labs: Laboratory Results - last 24 hr 02/08/25 09:50: WBC 7.6, RBC 3.98 L, Hgb 12.3 L, Hct 36.0 L, MCV 90.5, MCH 30.9, MCHC 34.2, RDW Std Deviation 42.0, RDW Coeff of Declan 12.7, Plt Count 307, MPV 8.6, Immature Gran % (Auto) 0.300, Neut % (Auto) 71.3 H, Lymph % (Auto) 16.4 L, [place] % (Auto) 9.1, Eos % (Auto) 2.1, Baso % (Auto) 0.8, Absolute Neuts (auto) 5.4, Absolute Lymphs (auto) 1.25, Nucleated RBC % 0, Sodium 136, Potassium 4.5, Chloride 102, Carbon Dioxide 22.6, Anion Gap 11, BUN 20 H, Creatinine 0.88, Estim Creat Clear Calc 80.22, Est GFR (MDRD) Non-Af 85, BUN/Creatinine Ratio 22.6 H, Glucose 92, Calcium 9.1, Troponin T High Sens 30 H, NT pro BNP II 653 02/08/25 12:09: Troponin T Hi Sens 2 Hr 28 H Micro: Microbiology 02/08/25 10:00 Mucosa - Nose SARS-CoV-2, Influenza & RSV (PCR) - Final Imaging Radiology Impression Chest X-Ray 02/08/25 10:10 IMPRESSION: There is moderate cardiomegaly without overt CHF, unchanged. There is no acute infiltrate or consolidation. Reading Location: [facility] Assessment & Plan Assessment/Plan (1) Chest pain: PLAN: Plan 1. Chest pain/essential HTN/CAD/A-fib ? Troponin elevation is insignificant ? Continue with stress test in the morning ? Can resume his home medications ? Continue with his home Eliquis, his Eliquis is at 2.5 mg p.o. twice daily however he would be able to tolerate 5 mg p.o. twice daily, will have him follow-up with cardiology to address this issue as an outpatient ? Will monitor make adjustments as necessary follow-up you are fine you are fine in the DVT: Toño 56 minutes was spent on direct patient care, including documentation as well as chart review and collaboration with colleagues Charges/Coding Visit Charges Inpatient E&M: 28781 Init Hosp L2
[2025-02-08 18:34] LABS: Troponin T High Sens 4 HR 24 ng/L (<=22)
[2025-02-08] MEDS: APIXABAN 2.5 MG TABLET (WCH) PO (21:41)
[2025-02-08] MEDS: 0.9% Saline Lock 10 ML Syringe IV (21:42)
[2025-02-09] VITALS: BP 157/67; PULSE 57; RESP 18; TEMP 36.3; O2SAT 97
[2025-02-09] MEDS: Acetaminophen 325 MG Tablet 650 MG PO (01:18)
[2025-02-09 03:00] VITALS: PULSE 48
[2025-02-09 04:37] VITALS: BMI 28.3
[2025-02-09 06:00] VITALS: BP 153/85; PULSE 61; RESP 20; TEMP 35.9; O2SAT 99
[2025-02-09 06:55] VITALS: PULSE 76
[2025-02-09] MEDS: Aspirin E.C. 81 MG Tablet PO (09:27)
[2025-02-09] MEDS: Lisinopril 40 MG Tablet PO (09:27)
[2025-02-09] MEDS: Ascorbic Acid 500 MG Tablet PO (09:27)
[2025-02-09 09:30] VITALS: BP 140/76; PULSE 74; RESP 19; TEMP 36.6; O2SAT 95
--- NOTE | 2025-02-09 12:12 | STRESSREP ---
Stress Test Report Pharmacologic/Lexiscan myocardial perfusion stress test. Indication; 85-year-old patient with symptoms of dyspnea and chest pain. Has history of osteoarthritis and anemia paroxysmal atrial fibrillation. Patient has cardiac catheterization in 2021/nonobstructive CAD and recommendation medical therapy Underwent Lexiscan sestamibi study. Stress protocol: Resting EKG demonstrates. Atrial fibrillation, controlled ventricular rate, right bundle branch block. PVCs infrequent 0.4 mg of regadenoson was infused per usual protocol followed by rapid intravenous saline flush injection continuous EKG monitoring was performed. The maximum heart rate attained was 93 bpm which was 68% of maximum predicted heart . Stress EKG showed[, no significant change from the resting EKG, with maximum heart rate of 93 bpm. Still in atrial fibrillation Arrhythmia: Infrequent premature ventricular complexes/PVCs Symptoms: Patient had no symptoms of chest pain with Lexiscan infusion Blood pressure at rest: 128/70 mmHg blood pressure at the end of stress: 128/70 mmHg Myocardial perfusion protocol. 15 mCi ]of Technetium 99m Sestamibi was injected at rest. [ 0.4 mg ]of Regadenoson was infused per usual protocol peak infusion 45 mCi ]of Technetium 99m sestamibi was injected. Stress images were obtained stress and rest images were reconstructed and compared in the short axis vertical and horizontal long axis. Gated images were also obtained Perfusion SPECT analysis: Review of the images demonstrate fixed perfusion defect involving inferior and lateral myocardium With no evidence of reversible myocardial ischemia. Gated SPECT analysis: The gated ejection fraction is 54% Mild inferolateral hypokinesia Conclusion: Fixed inferolateral myocardial defect noted with no evidence of reversible myocardial ischemia This could represent attenuation artifact Patient has no symptoms to report, in particular no chest pain Correlate with clinical presentation. Victorina Bee MD,FACC,[facility]
--- NOTE | 2025-02-09 14:19 | PCM.DC ---
Discharge Instructions Diet Discharge Diet: Low fat / Low cholesterol DC O2, CPAP, BIPAP needs Home O2 Discharge instructions: No Dressing / Incision Discharge Activity: Return to Normal Activity Dressing / Incision Call your doctor if you observe: Fever of 101 or Higher, Shortness of breath, Dizziness, Fainting spells, Swelling in the ankles, Chest pain and Increased palpitations (irregular heartbeat) Follow Up Care Test Results: Test results from this visit will be discussed in further detail at your follow-up appointment, if applicable. Discharge Plan Admission Admit Date/Time: 02/08/25 13:27 Attending Provider: Brooks Ruiz Primary Care Provider: Juan Lay Instructions Additional Instructions / Restrictions: Follow-up with your PCP in 3 to 5 days after your stress test. As we discussed given your congestion obviously not being related to heart function may be respiratory in nature and you might need outpatient PFTs Discharge Orders/Prescriptions Prescriptions: Continued lisinopril 40 mg tablet 40 mg PO DAILY Rx Instructions: Hold for systolic < or = to 100 or diastolic < or = 55. pravastatin 40 mg tablet 40 mg PO QHS Eliquis 2.5 mg tablet 2.5 mg PO BID ascorbic acid (vitamin C) 500 mg tablet 500 mg PO DAILY Centrum Silver 400-250 mcg tablet,chewable 1 tab PO DAILY Relief Factor PO Cardio [place] PO GSH 3 PO menthol-zinc oxide [Calmoseptine] 0.44-20.6 % ointment 1 applic topical 4-6XD PRN (Reason: wound healing) furosemide [Lasix] 40 mg tablet 40 mg PO QAM PRN (Reason: edema) aspirin [Adult Aspirin Regimen] 81 mg tablet,delayed release (DR/EC) 81 mg PO DAILY Referrals / Follow Up: Juan Lay MD [Primary Care Provider] - Within 1 Week Disposition Disposition (needs filled in before D/C Order can be placed): Home, Self Care
--- NOTE | 2025-02-09 14:21 | PCM.DC.SUM ---
Providers Date of Admission: 02/08/25 Primary Care Physician: Dr. Juan Lay MD Reason For Visit: CHEST PAIN R/O Diagnosis Discharge Diagnosis (1) Chest pain: Status: Acute Code(s): R07.9 - Chest pain, unspecified Medications at Discharge Home Medications lisinopril 40 mg tablet 40 mg PO DAILY 09/18/19 pravastatin 40 mg tablet 40 mg PO QHS 09/18/19 apixaban 2.5 mg tablet (Eliquis) 2.5 mg PO BID 05/28/22 ascorbic acid (vitamin C) 500 mg tablet 500 mg PO DAILY 05/28/22 aspirin 81 mg tablet,delayed release (Adult Aspirin Regimen) 81 mg PO DAILY 07/16/23 zglonldiguwf-npuzfza-gkqjl acid 400 mcg-lutein 250 mcg chewable tablet (Centrum Silver) 1 tab PO DAILY 11/10/23 Cardio [place] PO 05/12/24 GSH 3 PO 05/12/24 Relief Factor PO 05/12/24 menthol 0.44 %-zinc oxide 20.6 % topical ointment (Calmoseptine) 1 applic topical 4-6XD PRN wound healing 05/12/24 furosemide 40 mg tablet (Lasix) 40 mg PO QAM PRN edema 01/24/25 Hospital Course Operations None Procedures Nuclear stress test Summary of Care Provided Minutes Spent on Discharge: 37 Hospital Course: Per HPI: FELISHA GARRIDO, is a 85 M who presents to the hospital for 1 day of chest pressure and shortness of breath today. He denies any acute chest pain but felt that he was difficult to get a deep breath and he felt that he just had significant pressure. He has not been having this issue prior to today and it currently is improved and almost resolved. He was concerned that he had pneumonia but he is afebrile without a leukocytosis and he saturating 99% on room air. Chest x-ray in the ER was unremarkable with no consolidation, and the patient does not have any sick contacts at home. He did have a heart cath in 2021 which demonstrated mild coronary artery disease and they recommended at that time medical management. Initial troponin was 30 and it went down to 28, at the moment these are insignificant and his proBNP was normal at 653. Hospital Course: 1. Chest pressure/essential HTN/CAD/A-fib?85-year-old male presented to the hospital with chest pressure and shortness of breath. Troponins were insignificant and he underwent a stress test which was unremarkable with no signs of reversible ischemia or failure. His last echo was in 2022 with an EF of 60% and diastolic dysfunction therefore he is on Lasix and I encouraged him to take it more frequently as he only takes it when his legs are swollen. I discussed with him the plan for discharge today he expressed understanding of the risks and benefits of going home and would like to go home today. His daughter was concerned that there is no solution to his shortness of breath I tried to explain though I do believe he was unsuccessful in that his shortness of breath is likely more of a long-term related issue with allergies and nasal congestion possibly a history of COPD given his remote tobacco use as well as a combination of his mild aortic stenosis and borderline diastolic dysfunction. I recommend that he follow-up with his PCP to obtain pulmonary function testing to rule out pulmonary causes of his shortness of breath and then to take his Lasix a little bit more frequently to see if that helps with his respiratory status as well. Weight / BMI Weight Weight: 220 lb 3.869 oz Body Mass Index (BMI) 28.3 ABG / Lab / Microbiology Data 02/08/25 09:50 02/08/25 09:50 Laboratory: Laboratory Results - last 24 hr 02/08/25 18:00: Troponin T Hi Sens 4Hr 24 H Microbiology: Microbiology 02/08/25 10:00 Mucosa - Nose SARS-CoV-2, Influenza & RSV (PCR) - Final D/C Instructions Discharge Diet: Low fat / Low cholesterol Call your doctor if you observe: Fever of 101 or Higher, Shortness of breath, Dizziness, Fainting spells, Swelling in the ankles, Chest pain and Increased palpitations (irregular heartbeat) DC O2, CPAP, BIPAP Needs Home O2 Discharge instructions: No Meaningful Use Info Meaningful Use Meaningful Use Diagnoses (Choose all that apply): None applicable Ischemic Stroke Statin Dosing Therapy Reference: STATIN DOSE THERAPY REFERENCE: * Patients > 75 years receive moderate or high dose statin therapy. * Patients 75 years or YOUNGER should receive HIGH intensity statin dose unless contraindicated. You will be required to document reason for non-treatment if statin daily dose does not meet guidelines. HIGH DOSE STATIN THERAPY DAILY Atorvastatin > than or = to 40 mg Rosuvastatin > than or = to 20 mg Amlodipine + Atorvastatin > than or = to 2.5/40 mg Ezetimibe + Simvastatin 10/80 mg Simvastatin 80mg Discharge Plan Admission Admit Date/Time: 02/08/25 13:27 Attending Provider: Brooks Ruiz Primary Care Provider: Juan Lay Instructions Additional Instructions / Restrictions: Follow-up with your PCP in 3 to 5 days after your stress test. As we discussed given your congestion obviously not being related to heart function may be respiratory in nature and you might need outpatient PFTs Discharge Orders/Prescriptions Prescriptions: Continued lisinopril 40 mg tablet 40 mg PO DAILY Rx Instructions: Hold for systolic < or = to 100 or diastolic < or = 55. pravastatin 40 mg tablet 40 mg PO QHS Eliquis 2.5 mg tablet 2.5 mg PO BID ascorbic acid (vitamin C) 500 mg tablet 500 mg PO DAILY Centrum Silver 400-250 mcg tablet,chewable 1 tab PO DAILY Relief Factor PO Cardio [place]itlek PO GSH 3 PO menthol-zinc oxide [Calmoseptine] 0.44-20.6 % ointment 1 applic topical 4-6XD PRN (Reason: wound healing) furosemide [Lasix] 40 mg tablet 40 mg PO QAM PRN (Reason: edema) aspirin [Adult Aspirin Regimen] 81 mg tablet,delayed release (DR/EC) 81 mg PO DAILY Referrals / Follow Up: Juan Lay MD [Primary Care Provider] - Within 1 Week Disposition Disposition (needs filled in before D/C Order can be placed): Home, Self Care Charges/Coding Visit Charges Inpatient E&M: 17514 Disch Hosp >30min
--- NOTE | 2025-02-09 14:26 | PHA.DC_ITS ---
Pharmacy [place] Med Reconciliation Pharmacy Service has performed discharge medication reconciliation for this patient. The patient's discharge medication list was reviewed for discrepancies and discrepancies were resolved. Medications at Discharge Home Medications lisinopril 40 mg tablet 40 mg PO DAILY 09/18/19 pravastatin 40 mg tablet 40 mg PO QHS 09/18/19 apixaban 2.5 mg tablet (Eliquis) 2.5 mg PO BID 05/28/22 ascorbic acid (vitamin C) 500 mg tablet 500 mg PO DAILY 05/28/22 aspirin 81 mg tablet,delayed release (Adult Aspirin Regimen) 81 mg PO DAILY 07/16/23 dyozcfdnsjgp-sdwqsnb-oedgh acid 400 mcg-lutein 250 mcg chewable tablet (Centrum Silver) 1 tab PO DAILY 11/10/23 Cardio [place] PO 05/12/24 GSH 3 PO 05/12/24 Relief Factor PO 05/12/24 menthol 0.44 %-zinc oxide 20.6 % topical ointment (Calmoseptine) 1 applic topical 4-6XD PRN wound healing 05/12/24 furosemide 40 mg tablet (Lasix) 40 mg PO QAM PRN edema 01/24/25
--- NOTE | 2025-02-09 14:44 | CASEMGMT ---
Met with patient to complete WOOD form. WOOD form explained to patient who voiced understanding. Original form placed in pt?s chart and copy provided to patient. Purnima Benoit, Discharge Planning Asst
--- NOTE | 2025-02-09 15:00 | CHAPLAIN ---
Type of Pastoral Visit _x__ Initial Visit ___ Follow-up Visit ___ On-call Visit ___ General Patient Visit ___ Spiritual Assessment ___ Family Conference ___ Bereavement ___ Rapid Response ___ Code Blue ___ Other (describe below) Pastoral Care Referral From _x__ Patient _x__ Family ___ Nurse ___ Physician ___ Car Sander ___ Tape Deck Installer ___ Other (describe below) Sacrament/Intervention _x__ Active listening ___ Anointing ___ Religion ___ Bereavement ___ Communion ___ Ladonna exploration ___ ___ Life review _x__ Prayer ___ Reconciliation ___ Sacrament of Sick _x__ Supportive presence ___ Wedding ___ Other (describe below) Pastoral Comments patient and a daughter were in the room; pt is anxiously waiting to be discharged and is pacing; pt had a procedure done at 7 a.m. and has waited several hours for discharge and he and daughter both express frustrations; pt however is also agreeable to spiritual care and says quickly that I would love a blessing today and I believe in prayer; listening to concerns, offer of apology for waiting and a prayer were given; immediately after the prayer the RN came with the discharge papers, with everyone laughing that it must have been getting to the HIGHER POWER was needed
== END 2025-02-09 14:21 | disposition home or self-care (01) ==
LOC: ED 13:28 → PCU 13:39
PROVIDERS: Admitting Provider Family Medicine; Emergency Provider Emergency Medicine; PCP Family Medicine; Visit Provider Family Medicine
DX: R07.89 Other chest pain (principal); I48.0 Paroxysmal atrial fibrillation; I25.10 Atherosclerotic heart disease of native coronary artery without angina pectoris; R06.02 Shortness of breath; E78.5 Hyperlipidemia, unspecified; R09.81 Nasal congestion; R79.89 Other specified abnormal findings of blood chemistry; I10 Essential (primary) hypertension; I49.3 Ventricular premature depolarization; I35.0 Nonrheumatic aortic (valve) stenosis; Z79.82 Long term (current) use of aspirin; Z79.01 Long term (current) use of anticoagulants; Z87.891 Personal history of nicotine dependence; Z82.49 Family history of ischemic heart disease and other diseases of the circulatory system
CPT/HCPCS: 71046; 78452; 80048; 83880; 84484; 85025; 87631; 93005; 93017; 99221; 99285; A9500; A4216; G0378; J2785

== ENCOUNTER 2025-02-26 16:51 | Outpatient (RCR) | payer MEDICARE, SELFPAY ==
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
--- NOTE | 2025-05-22 12:08 | HP.PT.NRP ---
Patient Information Patient Information: FELISHA GARRIDO was seen in my office for initial evaluation on 02/26/25. The following Plan of Care was established for this patient: POC Established Initial Frequency: 2x /Week Initial Duration: 4 Weeks Anticipated Interventions Patient/Client Instruction: Educate patient on: Condition and Plan of Care For the Purpose of:: To decrease pain, To increase ROM, To improve muscle performance and motor function, To improve ability to perform ADL's, To increase tolerance to activity/condition/position, To improve ability of physical actions for home/community/work/leisure, To improve health of tissue, To decrease soft tissue restriction, To increase flexibility/ROM, To improve balance, To assume or resume ADL's and To improve tolerance to ADL's Therapeutic Exercise to Include: Strength training, Body mechanics, Postural training, Flexibilty training and Dynamic Lumbar Stabilization For the Purpose of:: To decrease pain, To increase ROM, To improve muscle performance and motor function, To improve ability to perform ADL's, To increase tolerance to activity/condition/position, To improve ability of physical actions for home/community/work/leisure, To improve gait and locomotor functions, To increase flexibility/ROM, To improve endurance, To improve balance and To improve tolerance to ADL's TENS: Yes IF ES: Yes Cryotherapy (ice pack, ice massage): Yes Thermo therapy (hot pack): Yes Ultrasound (thermal/non thermal): Yes For the Purpose of:: To decrease pain, To increase ROM, To improve nutrient delivery to tissue, To increase oxygenation perfusion, To improve health of tissue and To decrease soft tissue restriction Last Seen Last Seen: This patient was last seen in our office . Pertinent comments regarding their Physical therapy will appear below: Patient was seen for PT JEFF for HEP At this point I will be discontinuing this patient from physical therapy. I would be happy to see this patient again in the future if found appropriate by the physician. Thank you! Dutch Castaneda, PT, Cert MDT, OCS Balance/Gait/Functional tests Balance/Special Test Scores CATSIB Score (Max score 120 seconds): 42 Oswestry Low Back Score: 29
== END 2025-02-26 19:00 | disposition home or self-care (01) ==
LOC: PT 16:51
PROVIDERS: PCP Family Medicine; Visit Provider Family Medicine
DX: M43.9 Deforming dorsopathy, unspecified (principal)
CPT/HCPCS: 97110; 97162